=== PATIENT | female | born 1945 | race Caucasian/White ===

== ENCOUNTER → 2018-12-06 | Outpatient (CLI) | payer MEDICARE ==
--- NOTE | 2018-12-06 14:53 | REP ---
PA and lateral chest: There are no comparisons. The lung steele are clear. Cardiac size is upper normal. The aristides, mediastinum, skeletal structures are unremarkable. Patient age. Impression: Negative PA and lateral chest. Electronically Signed by Gaurav Stark MD 12/06/2018 02:45 P
== END ==
LOC: M ADAMS 14:30
PROVIDERS: ATTEND Family Medicine
DX: R05 Cough (principal); Z79.01 Long term (current) use of anticoagulants
CPT/HCPCS: 71046; 85610; G0463

== ENCOUNTER → 2018-12-06 | Outpatient (REF) | payer MEDICARE | LOC: M SFHCADAM 13:51 | PROVIDERS: ATTEND Family Medicine | DX: I48.2 Chronic atrial fibrillation (principal); I11.9 Hypertensive heart disease without heart failure; E03.9 Hypothyroidism, unspecified; E78.5 Hyperlipidemia, unspecified; R41.3 Other amnesia; Z53.8 Procedure and treatment not carried out for other reasons ==

== ENCOUNTER → 2018-12-08 | Outpatient (REF) | payer MEDICARE ==
[2018-12-08 13:17] LABS: HEMATOCRIT 41.3 % (36.0-47.0); HEMOGLOBIN 13.5 g/dl (12.0-15.5); MEAN CORPUSCULAR HEMOGLOBIN 32.7 pg (27.0-33.0); MEAN CORPUSCULAR HGB CONC 32.7 g/dl (32.0-36.5); PLATELET COUNT, AUTOMATED 185 10^3/uL (150-450); RED BLOOD COUNT 4.13 10^6/uL (4.00-5.40); WHITE BLOOD COUNT 5.3 10^3/uL (4.0-10.0)
[2018-12-08 13:26] LABS: ALBUMIN 3.4 GM/DL (3.2-5.2); ALT/SGPT 31 U/L (12-78); BILIRUBIN,TOTAL 0.5 MG/DL (0.2-1.0); BLOOD UREA NITROGEN 20 MG/DL (7-18); CALCIUM LEVEL 8.3 MG/DL (8.8-10.2); CARBON DIOXIDE LEVEL 31 MEQ/L (21-32); CHLORIDE LEVEL 106 MEQ/L (98-107); CHOLESTEROL LEVEL 242 MG/DL (<200); CHOLESTEROL RISK RATIO 2.659 (<5); CREATININE FOR GFR 0.64 MG/DL (0.55-1.30); FOLATE 8.1 NG/ML (>5.4); FREE T4 1.11 NG/DL (0.76-1.46); GLOMERULAR FILTRATION RATE > 60.0 (>39); GLUCOSE, FASTING 88 MG/DL (70-100); HDL CHOLESTEROL 91 MG/DL (>40); LDL CHOLESTEROL 130 MG/DL (<100); NON-HDL-C 151 MG/DL; POTASSIUM SERUM 3.9 MEQ/L (3.5-5.1); SODIUM LEVEL 142 MEQ/L (136-145); TOTAL PROTEIN 7.1 GM/DL (6.4-8.2); TRIGLYCERIDES LEVEL 104 MG/DL (<150); VITAMIN B12 LEVEL 1233 PG/ML (247-911)
== END ==
LOC: M SFHCADAM 08:55
PROVIDERS: ATTEND Family Medicine
DX: I48.2 Chronic atrial fibrillation (principal); I11.9 Hypertensive heart disease without heart failure; E03.9 Hypothyroidism, unspecified; E78.5 Hyperlipidemia, unspecified; R41.3 Other amnesia

== ENCOUNTER → 2019-08-17 | Outpatient (REF) | payer MEDICARE ==
[2019-08-17 17:26] LABS: HEMATOCRIT 41.6 % (36.0-47.0); HEMOGLOBIN 13.2 g/dl (12.0-15.5); MEAN CORPUSCULAR HEMOGLOBIN 31.8 pg (27.0-33.0); MEAN CORPUSCULAR HGB CONC 31.7 g/dl (32.0-36.5); MEAN CORPUSCULAR VOLUME 100.2 fl (80.0-96.0); PLATELET COUNT, AUTOMATED 198 10^3/uL (150-450); RED BLOOD COUNT 4.15 10^6/uL (4.00-5.40); WHITE BLOOD COUNT 5.2 10^3/uL (4.0-10.0)
[2019-08-17 17:41] LABS: ALBUMIN 3.6 GM/DL (3.2-5.2); ALT/SGPT 29 U/L (12-78); BILIRUBIN,TOTAL 0.6 MG/DL (0.2-1.0); BLOOD UREA NITROGEN 19 MG/DL (7-18); CALCIUM LEVEL 9.3 MG/DL (8.8-10.2); CARBON DIOXIDE LEVEL 36 MEQ/L (21-32); CHLORIDE LEVEL 105 MEQ/L (98-107); FREE T4 1.23 NG/DL (0.76-1.46); GLOMERULAR FILTRATION RATE > 60.0 (>39); GLUCOSE, FASTING 79 MG/DL (70-100); POTASSIUM SERUM 3.9 MEQ/L (3.5-5.1); SODIUM LEVEL 143 MEQ/L (136-145); TOTAL PROTEIN 6.9 GM/DL (6.4-8.2)
== END ==
LOC: M SFHCADAM 13:41
PROVIDERS: ATTEND Family Medicine
DX: I48.20 Chronic atrial fibrillation, unspecified (principal); I11.9 Hypertensive heart disease without heart failure; E03.9 Hypothyroidism, unspecified; Z79.01 Long term (current) use of anticoagulants
CPT/HCPCS: 80053; 84439; 84443; 85027; G0463

== ENCOUNTER → 2020-04-24 | Outpatient (REF) | payer MEDICARE | LOC: M SFHCADAM 09:55 | PROVIDERS: ATTEND Family Medicine | DX: I48.20 Chronic atrial fibrillation, unspecified (principal); R39.89 Other symptoms and signs involving the genitourinary system ==

== ENCOUNTER → 2020-04-25 | Outpatient (REF) | payer MEDICARE ==
[2020-04-25 13:20] LABS: APPEARANCE, URINE CLOUDY (CLEAR); BACTERIA, URINE AUTO 1+ (NEGATIVE); BILIRUBIN, URINE AUTO NEGATIVE (NEGATIVE); BLOOD, URINE BLOOD NEGATIVE (NEGATIVE); COLOR, URINE YELLOW (YELLOW); GLUCOSE, URINE (UA) AUTO NEGATIVE (NEGATIVE); KETONE, URINE AUTO NEGATIVE (NEGATIVE); LEUKOCYTE ESTERASE, URINE AUTO TRACE (NEGATIVE); MUCUS, URINE SMALL (NEGATIVE); NITRITE, URINE AUTO NEGATIVE (NEGATIVE); PROTEIN, URINE AUTO NEGATIVE (NEGATIVE); RBC, URINE AUTO 0 /HPF (0-3); SQUAMOUS EPITHELIAL CELL UR AU 0 /HPF (0-6); UROBILINOGEN, URINE AUTO 0.2 mg/dL (0.0-2.0); WBC, URINE AUTO 0 /HPF (0-3)
== END ==
LOC: M SFHCADAM 12:30
PROVIDERS: ATTEND Family Medicine
DX: R39.89 Other symptoms and signs involving the genitourinary system (principal)

== ENCOUNTER → 2020-06-26 | Outpatient (CLI) | payer MEDICARE ==
[2020-06-26 12:58] LABS: HEMATOCRIT 39.8 % (36.0-47.0); HEMOGLOBIN 12.9 g/dl (12.0-15.5); MEAN CORPUSCULAR HEMOGLOBIN 31.6 pg (27.0-33.0); MEAN CORPUSCULAR HGB CONC 32.4 g/dl (32.0-36.5); MEAN CORPUSCULAR VOLUME 97.5 fl (80.0-96.0); PLATELET COUNT, AUTOMATED 212 10^3/uL (150-450); RED BLOOD COUNT 4.08 10^6/uL (4.00-5.40); WHITE BLOOD COUNT 5.2 10^3/uL (4.0-10.0)
[2020-06-26 13:38] LABS: ALBUMIN 3.5 GM/DL (3.2-5.2); ALT/SGPT 27 U/L (12-78); BILIRUBIN,TOTAL 0.6 MG/DL (0.2-1.0); BLOOD UREA NITROGEN 17 MG/DL (7-18); CALCIUM LEVEL 8.7 MG/DL (8.8-10.2); CARBON DIOXIDE LEVEL 29 MEQ/L (21-32); CHLORIDE LEVEL 106 MEQ/L (98-107); CHOLESTEROL LEVEL 262 MG/DL (<200); CHOLESTEROL RISK RATIO 2.673 (<5); CREATININE FOR GFR 0.74 MG/DL (0.55-1.30); FREE T4 1.26 NG/DL (0.76-1.46); GLOMERULAR FILTRATION RATE > 60.0 (>39); GLUCOSE, FASTING 89 MG/DL (70-100); HDL CHOLESTEROL 98 MG/DL (>40); LDL CHOLESTEROL 149 MG/DL (<100); NON-HDL-C 164 MG/DL; POTASSIUM SERUM 3.8 MEQ/L (3.5-5.1); SODIUM LEVEL 141 MEQ/L (136-145); TRIGLYCERIDES LEVEL 74 MG/DL (<150)
== END ==
LOC: M WUC 09:30
PROVIDERS: ATTEND Family Medicine
DX: Z51.81 Encounter for therapeutic drug level monitoring (principal); Z79.01 Long term (current) use of anticoagulants; I48.20 Chronic atrial fibrillation, unspecified; I11.9 Hypertensive heart disease without heart failure; E03.9 Hypothyroidism, unspecified; E78.5 Hyperlipidemia, unspecified

== ENCOUNTER → 2020-07-08 | Outpatient (REF) | payer MEDICARE ==
[2020-07-08 16:42] LABS: INR 2.53; PROTHROMBIN TIME 27.8 SECONDS (12.5-14.3)
== END ==
LOC: M SFHCADAM 11:16
PROVIDERS: ATTEND Family Medicine
DX: I48.20 Chronic atrial fibrillation, unspecified (principal)

== ENCOUNTER → 2020-08-13 | Outpatient (CLI) | payer MEDICARE ==
[2020-08-13 16:55] LABS: THYROID STIMULATING HORMONE 1.09 uIU/ML (0.358-3.740)
[2020-08-13 16:56] LABS: FOLATE 21.4 NG/ML
[2020-08-20 14:12] LABS: VITAMIN B1 LEVEL WHOLE BLOOD 204.5 nmol/L (66.5-200.0); VITAMIN B6,PYRIDOXAL PHOSPHATE 97.4 ug/L (2.0-32.8); VITAMIN E(ALPHA TOCOPHEROL) 18.5 mg/L (9.0-29.0); VITAMIN E(GAMMA TOCOPHEROL) 0.6 mg/L (0.5-4.9)
== END ==
LOC: M WUC 13:13
PROVIDERS: ATTEND Psychiatry & Neurology Neurology
DX: E03.9 Hypothyroidism, unspecified (principal); E53.8 Deficiency of other specified B group vitamins

== ENCOUNTER → 2021-03-10 | Outpatient (REF) | payer MEDICARE ==
[2021-03-10 12:42] LABS: INR 2.4; PROTHROMBIN TIME 26.6 SECONDS (12.7-14.5)
== END ==
LOC: M SFHCADAM 10:35
PROVIDERS: ATTEND Family Medicine
DX: I48.20 Chronic atrial fibrillation, unspecified (principal); Z79.01 Long term (current) use of anticoagulants

== ENCOUNTER → 2021-04-21 | Outpatient (REF) | payer MEDICARE ==
[2021-04-21 13:15] LABS: INR 2.15; PROTHROMBIN TIME 24.4 SECONDS (12.7-14.5)
== END ==
LOC: M SFHCADAM 09:41
PROVIDERS: ATTEND Family Medicine
DX: Z79.01 Long term (current) use of anticoagulants (principal)

== ENCOUNTER → 2021-07-15 | Outpatient (REF) | payer MEDICARE ==
[2021-07-15 17:37] LABS: ALBUMIN 3.8 GM/DL (3.2-5.2); ALT/SGPT 35 U/L (12-78); BILIRUBIN,TOTAL 0.7 MG/DL (0.2-1.0); BLOOD UREA NITROGEN 15 MG/DL (7-18); CALCIUM LEVEL 9.7 MG/DL (8.8-10.2); CARBON DIOXIDE LEVEL 34 MEQ/L (21-32); CHLORIDE LEVEL 104 MEQ/L (98-107); CHOLESTEROL LEVEL 258 MG/DL (<200); CHOLESTEROL RISK RATIO 2.411 (<5); CREATININE FOR GFR 0.74 MG/DL (0.55-1.30); FREE T4 1.35 NG/DL (0.76-1.46); GLOMERULAR FILTRATION RATE > 60.0 (>39); GLUCOSE, FASTING 92 MG/DL (70-100); HDL CHOLESTEROL 107 MG/DL (>40); LDL CHOLESTEROL 139 MG/DL (<100); NON-HDL-C 151 MG/DL; SODIUM LEVEL 141 MEQ/L (136-145); TOTAL PROTEIN 7.3 GM/DL (6.4-8.2); TRIGLYCERIDES LEVEL 58 MG/DL (<150)
[2021-07-15 17:38] LABS: FOLATE 16.5 NG/ML (>5.4); VITAMIN B12 LEVEL 1819 PG/ML (247-911)
[2021-07-15 18:04] LABS: HEMOGLOBIN 13.7 g/dl (12.0-15.5); MEAN CORPUSCULAR HEMOGLOBIN 32.1 pg (27.0-33.0); MEAN CORPUSCULAR HGB CONC 32.6 g/dl (32.0-36.5); MEAN CORPUSCULAR VOLUME 98.4 fl (80.0-96.0); PLATELET COUNT, AUTOMATED 212 10^3/uL (150-450); RED BLOOD COUNT 4.27 10^6/uL (4.00-5.40); WHITE BLOOD COUNT 5.5 10^3/uL (4.0-10.0)
== END ==
LOC: M SFHCADAM 12:01
PROVIDERS: ATTEND Family Medicine
DX: Z79.01 Long term (current) use of anticoagulants (principal); I48.19 Other persistent atrial fibrillation; I11.9 Hypertensive heart disease without heart failure; E03.9 Hypothyroidism, unspecified; E78.5 Hyperlipidemia, unspecified; G25.0 Essential tremor; R41.3 Other amnesia
CPT/HCPCS: 80053; 80061; 82607; 82746; 84439; 84443; 85027; 85610; G0463

== ENCOUNTER → 2021-12-19 | Outpatient (REF) | payer MEDICARE | LOC: M SFHCADAM 12:41 | PROVIDERS: ATTEND Family Medicine | DX: R19.7 Diarrhea, unspecified (principal) ==

== ENCOUNTER → 2022-03-09 | Outpatient (REF) | payer MEDICARE ==
[2022-03-09 13:42] LABS: APPEARANCE, URINE MANUAL CLEAR (CLEAR); COLOR, URINE MANUAL YELLOW (YELLOW)
[2022-03-09 13:43] LABS: BILIRUBIN, URINE MANUAL NEGATIVE (NEGATIVE); BLOOD URINE MANUAL NEGATIVE (NEGATIVE); GLUCOSE, URINE (UA) MANUAL NEGATIVE (NEGATIVE); KETONE, URINE MANUAL NEGATIVE (NEGATIVE); LEUKOCYTE ESTERASE, URINE MAN POSITIVE (NEGATIVE); NITRITE, URINE MANUAL NEGATIVE (NEGATIVE); PROTEIN, URINE MANUAL NEGATIVE (NEGATIVE); SPECIFIC GRAVITY,URINE MANUAL 1.011 (1.002-1.035); UROBILINOGEN, URINE MANUAL NORMAL (NORMAL)
[2022-03-09 13:48] LABS: HEMATOCRIT 39.8 % (36.0-47.0); HEMOGLOBIN 12.9 g/dl (12.0-15.5); MEAN CORPUSCULAR HEMOGLOBIN 31.9 pg (27.0-33.0); MEAN CORPUSCULAR HGB CONC 32.4 g/dl (32.0-36.5); MEAN CORPUSCULAR VOLUME 98.5 fl (80.0-96.0); PLATELET COUNT, AUTOMATED 185 10^3/uL (150-450); RED BLOOD COUNT 4.04 10^6/uL (4.00-5.40); WHITE BLOOD COUNT 5.1 10^3/uL (4.0-10.0)
[2022-03-09 14:07] LABS: BACTERIA, URINE SMALL AMOUNT; RBC, URINE 0-1 /hpf (0-3)
[2022-03-09 14:08] LABS: AMORPHOUS SEDIMENT, URINE SMALL AMOUNT (NEGATIVE); HYALINE CAST, URINE NONE SEEN /lpf (0-1); MUCUS, URINE SMALL AMOUNT (NEGATIVE); SQUAMOUS EPITHELIAL CELL URINE SMALL AMOUNT /hpf (SMALL AMT)
[2022-03-09 17:24] LABS: ALBUMIN 3.6 GM/DL (3.2-5.2); ALT/SGPT 34 U/L (12-78); BILIRUBIN,TOTAL 0.6 MG/DL (0.2-1.0); BLOOD UREA NITROGEN 22 MG/DL (7-18); CALCIUM LEVEL 9.7 MG/DL (8.8-10.2); CARBON DIOXIDE LEVEL 31 MEQ/L (21-32); CHLORIDE LEVEL 105 MEQ/L (98-107); CHOLESTEROL LEVEL 235 MG/DL (<200); CHOLESTEROL RISK RATIO 2.175 (<5); CREATININE FOR GFR 0.72 MG/DL (0.55-1.30); FREE T4 1.11 NG/DL (0.76-1.46); GLOMERULAR FILTRATION RATE > 60.0 (>39); GLUCOSE, FASTING 86 MG/DL (70-100); HDL CHOLESTEROL 108 MG/DL (>40); LDL CHOLESTEROL 111 MG/DL (<100); NON-HDL-C 127 MG/DL; POTASSIUM SERUM 3.8 MEQ/L (3.5-5.1); SODIUM LEVEL 139 MEQ/L (136-145); TOTAL PROTEIN 6.9 GM/DL (6.4-8.2); TRIGLYCERIDES LEVEL 79 MG/DL (<150)
[2022-03-09 17:57] LABS: VITAMIN B12 LEVEL 764 PG/ML (247-911)
== END ==
LOC: M SFHCADAM 10:58
PROVIDERS: ATTEND Family Medicine
DX: F03.90 Unspecified dementia, unspecified severity, without behavioral disturbance, psychotic disturbance, mood disturbance, and anxiety (principal); Z79.01 Long term (current) use of anticoagulants; E03.9 Hypothyroidism, unspecified; E78.5 Hyperlipidemia, unspecified; I11.9 Hypertensive heart disease without heart failure; R35.0 Frequency of micturition

== ENCOUNTER → 2022-03-25 | Outpatient (REF) | payer MEDICARE ==
[2022-03-25 18:29] LABS: APPEARANCE, URINE MANUAL CLEAR (CLEAR); COLOR, URINE MANUAL YELLOW (YELLOW)
[2022-03-25 18:30] LABS: BILIRUBIN, URINE MANUAL NEGATIVE (NEGATIVE); BLOOD URINE MANUAL NEGATIVE (NEGATIVE); GLUCOSE, URINE (UA) MANUAL NEGATIVE (NEGATIVE); KETONE, URINE MANUAL NEGATIVE (NEGATIVE); LEUKOCYTE ESTERASE, URINE MAN POSITIVE (NEGATIVE); NITRITE, URINE MANUAL NEGATIVE (NEGATIVE); PROTEIN, URINE MANUAL NEGATIVE (NEGATIVE); UROBILINOGEN, URINE MANUAL NORMAL (NORMAL)
[2022-03-25 18:39] LABS: RBC, URINE 0-1 /hpf (0-3); SQUAMOUS EPITHELIAL CELL URINE MOD AMOUNT /hpf (SMALL AMT)
[2022-03-25 18:40] LABS: BACTERIA, URINE SMALL AMOUNT; HYALINE CAST, URINE NONE SEEN /lpf (0-1)
== END ==
LOC: M SFHCADAM 16:12
PROVIDERS: ATTEND Family Medicine
DX: N39.0 Urinary tract infection, site not specified (principal)

== ENCOUNTER 2022-05-30 14:57 | Inpatient (IN) | payer MEDICARE ==
[~2022-05-30] VITALS: Ht 165.1 cm; Wt 76.6 kg
[2022-05-30] MEDS ORDERED: BOOSTRIX/ADACEL VACCINE (DIPHTH/PERTUSS/ACELL/TETANUS) 0.5ML SYR IM.IMMUN ONE (15:10)
[2022-05-30 15:32] LABS: HEMATOCRIT 38.5 % (36.0-47.0); MEAN CORPUSCULAR HEMOGLOBIN 32.8 pg (27.0-33.0); MEAN CORPUSCULAR HGB CONC 33.8 g/dl (32.0-36.5); MEAN CORPUSCULAR VOLUME 97.2 fl (80.0-96.0); PLATELET COUNT, AUTOMATED 219 10^3/uL (150-450); RED BLOOD COUNT 3.96 10^6/uL (4.00-5.40); WHITE BLOOD COUNT 6.2 10^3/uL (4.0-10.0)
[2022-05-30 15:45] LABS: INR 3.01; PROTHROMBIN TIME 31.7 SECONDS (12.5-14.5)
[2022-05-30 16:20] LABS: ALBUMIN 3.5 GM/DL (3.2-5.2); ALT/SGPT 36 U/L (12-78); BILIRUBIN,TOTAL 0.5 MG/DL (0.2-1.0); BLOOD UREA NITROGEN 18 MG/DL (7-18); CALCIUM LEVEL 9.2 MG/DL (8.8-10.2); CARBON DIOXIDE LEVEL 34 MEQ/L (21-32); CHLORIDE LEVEL 104 MEQ/L (98-107); CREATININE FOR GFR 0.84 MG/DL (0.55-1.30); GLOMERULAR FILTRATION RATE > 60.0 (>39); GLUCOSE, FASTING 124 MG/DL (70-100); POTASSIUM SERUM 3.8 MEQ/L (3.5-5.1); SODIUM LEVEL 141 MEQ/L (136-145); TOTAL PROTEIN 6.9 GM/DL (6.4-8.2)
[2022-05-30] MEDS ORDERED: ACETAMINOPHEN 1000MG 100ML IV BAG IV ONE (16:25)
[2022-05-30] MEDS ORDERED: traMADol 50 MG TAB PO ONE (16:25)
[2022-05-30 16:37] LABS: RSV AMPLIFICATION NEGATIVE (NEGATIVE)
[2022-05-30] MEDS ORDERED: SYNT75TA PO (16:53)
[2022-05-30] MEDS ORDERED: CHLO125TA PO (16:53)
[2022-05-30] MEDS ORDERED: WARF-23 PO (16:53)
[2022-05-30] MEDS ORDERED: DONE10TA90 PO (16:53)
[2022-05-30] MEDS ORDERED: CARV12.5 PO (16:53)
[2022-05-30] MEDS ORDERED: HOME MED LIST COMPLETE! XX SCH (16:55)
[2022-05-30] MEDS ORDERED: MULT-90 PO (16:55)
[2022-05-30] MEDS ORDERED: MAGN400C PO (16:55)
[2022-05-30] MEDS ORDERED: COLA100C5 PO (16:55)
[2022-05-30 18:45] VITALS: BP 160/78
[2022-05-30 20:00] VITALS: BP 180/77
[2022-05-30] MEDS: CARVedilol 12.5 MG TAB PO SCH (20:24)
[2022-05-30] MEDS: hydrALAZINE 20MG/ML 1ML VIAL (J0360 PER 20MG) IV PRN (20:25)
[2022-05-30] MEDS: ACETAMINOPHEN TAB 650MG DOSE (2X325MG) PO PRN (20:25)
[2022-05-30] MEDS ORDERED: BACITRACIN OINTMENT 30GM TUBE TOP PRN (20:40)
[2022-05-31] VITALS (8 sets, daily range): BP systolic 140–184; BP diastolic 72–96
[2022-05-31] MEDS: LEVOTHYROXINE 75MCG TABLET (0.075MG) PO SCH (05:40)
[2022-05-31] MEDS: ACETAMINOPHEN TAB 650MG DOSE (2X325MG) PO PRN (05:40)
[2022-05-31 05:57] LABS: HEMATOCRIT 36.1 % (36.0-47.0); HEMOGLOBIN 12.1 g/dl (12.0-15.5); MEAN CORPUSCULAR HEMOGLOBIN 32.4 pg (27.0-33.0); MEAN CORPUSCULAR HGB CONC 33.5 g/dl (32.0-36.5); MEAN CORPUSCULAR VOLUME 96.5 fl (80.0-96.0); PLATELET COUNT, AUTOMATED 186 10^3/uL (150-450); RED BLOOD COUNT 3.74 10^6/uL (4.00-5.40); WHITE BLOOD COUNT 6.9 10^3/uL (4.0-10.0)
[2022-05-31 06:02] LABS: INR 2.9; PROTHROMBIN TIME 30.8 SECONDS (12.5-14.5)
[2022-05-31 06:03] LABS: PARTIAL THROMBOPLASTIN TIME 48.4 SECONDS (24.8-34.2)
[2022-05-31 06:32] LABS: ALBUMIN 3.2 GM/DL (3.2-5.2); ALT/SGPT 32 U/L (12-78); BILIRUBIN,TOTAL 0.8 MG/DL (0.2-1.0); BLOOD UREA NITROGEN 18 MG/DL (7-18); CALCIUM LEVEL 8.5 MG/DL (8.8-10.2); CARBON DIOXIDE LEVEL 27 MEQ/L (21-32); CHLORIDE LEVEL 106 MEQ/L (98-107); CREATININE FOR GFR 0.62 MG/DL (0.55-1.30); GLOMERULAR FILTRATION RATE > 60.0 (>39); GLUCOSE, FASTING 109 MG/DL (70-100); POTASSIUM SERUM 3.4 MEQ/L (3.5-5.1); SODIUM LEVEL 139 MEQ/L (136-145); TOTAL PROTEIN 6.4 GM/DL (6.4-8.2)
[2022-05-31] MEDS: CARVedilol 12.5 MG TAB PO SCH ×2 (07:45→22:14)
[2022-05-31] MEDS: MAGNESIUM OXIDE 400MG TAB (MAG-OX) PO SCH (07:50)
[2022-05-31] MEDS: MULTIVITAMINS/MINERALS THERAP 1 TAB PO SCH (07:50)
[2022-05-31] MEDS: DONEPEZIL 5 MG TAB PO SCH (07:51)
[2022-05-31] MEDS: CHLORTHALIDONE 12.5MG PER 1/2 TABLET PO SCH (07:51)
[2022-05-31] MEDS: DOCUSATE SODIUM 100MG CAPSULE PO SCH (07:53)
[2022-05-31] MEDS ORDERED: POTASSIUM CHLORIDE 10MEQ SR TABLET PO ONE (08:00)
[2022-06-01] VITALS (8 sets, daily range): BP systolic 102–176; BP diastolic 54–90
[2022-06-01] MEDS: LEVOTHYROXINE 75MCG TABLET (0.075MG) PO SCH (05:19)
[2022-06-01] MEDS: ACETAMINOPHEN TAB 650MG DOSE (2X325MG) PO PRN (05:20)
[2022-06-01] MEDS: hydrALAZINE 20MG/ML 1ML VIAL (J0360 PER 20MG) IV PRN (05:20)
[2022-06-01 06:09] LABS: HEMATOCRIT 37.3 % (36.0-47.0); HEMOGLOBIN 12.1 g/dl (12.0-15.5); MEAN CORPUSCULAR HEMOGLOBIN 31.6 pg (27.0-33.0); MEAN CORPUSCULAR HGB CONC 32.4 g/dl (32.0-36.5); MEAN CORPUSCULAR VOLUME 97.4 fl (80.0-96.0); PLATELET COUNT, AUTOMATED 197 10^3/uL (150-450); RED BLOOD COUNT 3.83 10^6/uL (4.00-5.40); WHITE BLOOD COUNT 7.7 10^3/uL (4.0-10.0)
[2022-06-01 06:19] LABS: INR 1.68; PROTHROMBIN TIME 20.1 SECONDS (12.5-14.5)
[2022-06-01 06:20] LABS: PARTIAL THROMBOPLASTIN TIME 41.6 SECONDS (24.8-34.2)
[2022-06-01 06:46] LABS: ALBUMIN 3.2 GM/DL (3.2-5.2); ALT/SGPT 34 U/L (12-78); BLOOD UREA NITROGEN 15 MG/DL (7-18); CALCIUM LEVEL 8.6 MG/DL (8.8-10.2); CARBON DIOXIDE LEVEL 25 MEQ/L (21-32); CHLORIDE LEVEL 104 MEQ/L (98-107); CREATININE FOR GFR 0.65 MG/DL (0.55-1.30); GLOMERULAR FILTRATION RATE > 60.0 (>39); GLUCOSE, FASTING 140 MG/DL (70-100); POTASSIUM SERUM 3.6 MEQ/L (3.5-5.1); SODIUM LEVEL 138 MEQ/L (136-145); TOTAL PROTEIN 6.9 GM/DL (6.4-8.2)
[2022-06-01] MEDS: MULTIVITAMINS/MINERALS THERAP 1 TAB PO SCH (08:20)
[2022-06-01] MEDS: CHLORTHALIDONE 12.5MG PER 1/2 TABLET PO SCH (08:20)
[2022-06-01] MEDS: DOCUSATE SODIUM 100MG CAPSULE PO SCH (08:21)
[2022-06-01] MEDS: DONEPEZIL 5 MG TAB PO SCH (08:21)
[2022-06-01] MEDS: MAGNESIUM OXIDE 400MG TAB (MAG-OX) PO SCH (08:21)
[2022-06-01] MEDS: CARVedilol 12.5 MG TAB PO SCH ×2 (08:21→21:00)
[2022-06-01] MEDS ORDERED: cloNIDine 0.1MG TABLET PO ONE (10:45)
[2022-06-02] VITALS (7 sets, daily range): BP systolic 119–160; BP diastolic 60–76
[2022-06-02] MEDS: LEVOTHYROXINE 75MCG TABLET (0.075MG) PO SCH (06:21)
[2022-06-02] MEDS: DOCUSATE SODIUM 100MG CAPSULE PO SCH (07:43)
[2022-06-02] MEDS: MAGNESIUM OXIDE 400MG TAB (MAG-OX) PO SCH (07:43)
[2022-06-02] MEDS: CHLORTHALIDONE 12.5MG PER 1/2 TABLET PO SCH (07:44)
[2022-06-02] MEDS: CARVedilol 12.5 MG TAB PO SCH (07:44)
[2022-06-02] MEDS: DONEPEZIL 5 MG TAB PO SCH (07:44)
[2022-06-02] MEDS: MULTIVITAMINS/MINERALS THERAP 1 TAB PO SCH (07:44)
[2022-06-02] MEDS ORDERED: WARFARIN SOD 5MG TAB PO ONE (19:15)
[2022-06-02] MEDS: MEMANTINE 5MG TABLET (NAMENDA) PO SCH (20:01)
[2022-06-02] MEDS: CARVedilol 6.25 MG TAB PO SCH (20:02)
[2022-06-03] MEDS: ACETAMINOPHEN TAB 650MG DOSE (2X325MG) PO PRN (00:14)
[2022-06-03 04:00] VITALS: BP 140/73
[2022-06-03] MEDS: LEVOTHYROXINE 75MCG TABLET (0.075MG) PO SCH (05:34)
[2022-06-03] MEDS ORDERED: MEMA1TAB3 PO (07:14)
[2022-06-03] MEDS ORDERED: CARV6.25 PO (07:14)
[2022-06-03 07:49] LABS: INR 1.13; PROTHROMBIN TIME 14.8 SECONDS (12.5-14.5)
[2022-06-03] MEDS: CHLORTHALIDONE 12.5MG PER 1/2 TABLET PO SCH (07:59)
[2022-06-03] MEDS: DOCUSATE SODIUM 100MG CAPSULE PO SCH (07:59)
[2022-06-03] MEDS: MULTIVITAMINS/MINERALS THERAP 1 TAB PO SCH (07:59)
[2022-06-03] MEDS: MEMANTINE 5MG TABLET (NAMENDA) PO SCH (07:59)
[2022-06-03 08:00] VITALS: BP 182/85
[2022-06-03] MEDS: CARVedilol 6.25 MG TAB PO SCH (08:00)
[2022-06-03] MEDS: MAGNESIUM OXIDE 400MG TAB (MAG-OX) PO SCH (08:00)
[2022-06-03] MEDS ORDERED: WARF-23 PO (12:32)
== END 2022-06-03 12:18 | disposition home health service (06) | DRG 83 ==
LOC: M ED 14:57 → EDBD 14:57 → M ED INP 16:23 → UNDOADMOB 16:23 → OBSVTOIN 17:35 → INTOOBSV 17:35 → ENRESERV 18:08 → M PCU 18:32 → M ED INP 18:32 → OBSVTOIN 06-01 16:23 → M ED INP 06-01 16:23 → M PCU 06-01 16:23
PROVIDERS: ADMIT Internal Medicine; ATTEND Internal Medicine
DX: S06.9X9A Unspecified intracranial injury with loss of consciousness of unspecified duration, initial encounter (principal); I48.20 Chronic atrial fibrillation, unspecified; S00.03XA Contusion of scalp, initial encounter; I10 Essential (primary) hypertension; E03.9 Hypothyroidism, unspecified; G30.9 Alzheimer's disease, unspecified; F02.80 Dementia in other diseases classified elsewhere, unspecified severity, without behavioral disturbance, psychotic disturbance, mood disturbance, and anxiety; M54.50 Low back pain, unspecified; G89.29 Other chronic pain; W01.0XXA Fall on same level from slipping, tripping and stumbling without subsequent striking against object, initial encounter; Y92.009 Unspecified place in unspecified non-institutional (private) residence as the place of occurrence of the external cause; Z90.49 Acquired absence of other specified parts of digestive tract; Z98.41 Cataract extraction status, right eye; Z98.42 Cataract extraction status, left eye; I16.0 Hypertensive urgency; R26.89 Other abnormalities of gait and mobility; E83.42 Hypomagnesemia; Z79.01 Long term (current) use of anticoagulants; Z79.890 Hormone replacement therapy; Z79.899 Other long term (current) drug therapy; Z20.822 Contact with and (suspected) exposure to COVID-19; R00.1 Bradycardia, unspecified

== ENCOUNTER → 2022-06-23 | Outpatient (CLI) | payer MEDICARE ==
[~2022-06-23] MED LIST: CARV12.5 PO; CARV6.25 PO; CHLO125TA PO; COLA100C5 PO; DONE10TA90 PO; MAGN400C PO; MEMA1TAB3 PO; MULT-90 PO; SYNT75TA PO; WARF-23 PO
== END ==
LOC: M ADAMS 13:53
PROVIDERS: ATTEND Physician Assistant
DX: S70.01XS Contusion of right hip, sequela (principal)

== ENCOUNTER → 2022-07-27 | Outpatient (REF) | payer MEDICARE ==
[2022-07-27 13:04] LABS: MEAN CORPUSCULAR HEMOGLOBIN 32.3 pg (27.0-33.0); MEAN CORPUSCULAR HGB CONC 32.6 g/dl (32.0-36.5); MEAN CORPUSCULAR VOLUME 99.3 fl (80.0-96.0); PLATELET COUNT, AUTOMATED 287 10^3/uL (150-450); RED BLOOD COUNT 4.33 10^6/uL (4.00-5.40); WHITE BLOOD COUNT 7.1 10^3/uL (4.0-10.0)
[2022-07-27 13:40] LABS: ALBUMIN 3.6 G/DL (3.2-5.2); ALKALINE PHOSPHATASE 135 U/L (46-116); ALT/SGPT 20 U/L (7.0-40); AST/SGOT 24 U/L (<34); BILIRUBIN,TOTAL 0.5 MG/DL (0.3-1.2); BLOOD UREA NITROGEN 19 MG/DL (9-23); CALCIUM LEVEL 9.5 MG/DL (8.3-10.6); CARBON DIOXIDE LEVEL 28 MMOL/L (20-31); CHLORIDE LEVEL 100 MMOL/L (98-107); CHOLESTEROL LEVEL 235 MG/DL (<200); CHOLESTEROL RISK RATIO 2.77 (<5); CREATININE FOR GFR 0.61 MG/DL (0.55-1.30); GLOMERULAR FILTRATION RATE > 60.0 (>39); GLUCOSE, FASTING 83 MG/DL (74-106); HDL CHOLESTEROL 84.6 MG/DL (>40); LDL CHOLESTEROL 127.4 MG/DL (<100); NON-HDL-C 150 MG/DL; POTASSIUM SERUM 4.1 MMOL/L (3.5-5.1); SODIUM LEVEL 140 MMOL/L (136-145); TOTAL PROTEIN 7.1 G/DL (5.7-8.2); TRIGLYCERIDES LEVEL 115 MG/DL (<150)
[2022-07-27 13:41] LABS: FREE T4 1.41 NG/DL (0.89-1.76); THYROID STIMULATING HORMONE 1.649 uIU/ML (0.55-4.78)
== END ==
LOC: M SFHCADAM 11:22
PROVIDERS: ATTEND Family Medicine
DX: I11.9 Hypertensive heart disease without heart failure (principal); F03.90 Unspecified dementia, unspecified severity, without behavioral disturbance, psychotic disturbance, mood disturbance, and anxiety; E03.9 Hypothyroidism, unspecified; E78.5 Hyperlipidemia, unspecified; Z79.01 Long term (current) use of anticoagulants

== ENCOUNTER → 2022-08-20 | Outpatient (CLI) | payer MEDICARE ==
[2022-08-20 13:24] LABS: INR 1.97; PROTHROMBIN TIME 22.8 SECONDS (12.5-14.5)
== END ==
LOC: M WUC 10:02
PROVIDERS: ATTEND Family Medicine
DX: Z51.81 Encounter for therapeutic drug level monitoring (principal); Z79.01 Long term (current) use of anticoagulants

== ENCOUNTER → 2022-09-15 | Outpatient (CLI) | payer MEDICARE ==
[2022-09-15 12:53] LABS: INR 2.24; PROTHROMBIN TIME 25.2 SECONDS (12.5-14.5)
== END ==
LOC: M WUC 10:23
PROVIDERS: ATTEND Family Medicine
DX: Z79.01 Long term (current) use of anticoagulants (principal)

== ENCOUNTER → 2022-09-29 | Outpatient (CLI) | payer MEDICARE | LOC: M ADAMS 14:57 | PROVIDERS: ATTEND Physician Assistant | DX: J20.9 Acute bronchitis, unspecified (principal) ==

== ENCOUNTER → 2022-11-01 | Outpatient (CLI) | payer MEDICARE ==
[2022-11-01 12:54] LABS: HEMATOCRIT 41.2 % (36.0-47.0); HEMOGLOBIN 13.2 g/dl (12.0-15.5); MEAN CORPUSCULAR HEMOGLOBIN 31.4 pg (27.0-33.0); MEAN CORPUSCULAR VOLUME 97.9 fl (80.0-96.0); PLATELET COUNT, AUTOMATED 223 10^3/uL (150-450); RED BLOOD COUNT 4.21 10^6/uL (4.00-5.40); WHITE BLOOD COUNT 6.3 10^3/uL (4.0-10.0)
[2022-11-01 13:16] LABS: ALBUMIN 3.4 G/DL (3.2-5.2); ALKALINE PHOSPHATASE 75 U/L (46-116); ALT/SGPT 20 U/L (7.0-40); AST/SGOT 22 U/L (<34); BILIRUBIN,TOTAL 0.7 MG/DL (0.3-1.2); BLOOD UREA NITROGEN 20 MG/DL (9-23); CALCIUM LEVEL 8.4 MG/DL (8.3-10.6); CARBON DIOXIDE LEVEL 31 MMOL/L (20-31); CHLORIDE LEVEL 103 MMOL/L (98-107); CREATININE FOR GFR 0.61 MG/DL (0.55-1.30); FREE T4 1.12 NG/DL (0.89-1.76); GLOMERULAR FILTRATION RATE > 60.0 (>39); GLUCOSE, FASTING 93 MG/DL (74-106); POTASSIUM SERUM 3.7 MMOL/L (3.5-5.1); SODIUM LEVEL 141 MMOL/L (136-145); THYROID STIMULATING HORMONE 1.496 uIU/ML (0.55-4.78); TOTAL PROTEIN 6.5 G/DL (5.7-8.2)
[2022-11-03 21:07] LABS: BORDETELLA PERTUSSIS ABY IgA 4.8 index (0.0-0.9); BORDETELLA PERTUSSIS ABY IgM <1.0 index (0.0-0.9)
== END ==
LOC: M WUC 09:13
PROVIDERS: ATTEND Family Medicine
DX: E03.9 Hypothyroidism, unspecified (principal); I11.9 Hypertensive heart disease without heart failure; J44.9 Chronic obstructive pulmonary disease, unspecified; R05.3 Chronic cough

== ENCOUNTER → 2022-11-08 | Outpatient (CLI) | payer MEDICARE | LOC: M PLAIMG 13:07 | PROVIDERS: ATTEND Family Medicine | DX: J45.909 Unspecified asthma, uncomplicated (principal); R05.9 Cough, unspecified ==

== ENCOUNTER → 2022-11-19 | Outpatient (REF) | payer MEDICARE | LOC: M SFHCADAM 10:19 | PROVIDERS: ATTEND Family Medicine | DX: Z79.01 Long term (current) use of anticoagulants (principal) ==

== ENCOUNTER → 2023-02-16 | Outpatient (REF) | payer MEDICARE ==
[2023-02-16 14:29] LABS: APPEARANCE, URINE CLOUDY (CLEAR); BACTERIA, URINE AUTO 2+ (NEGATIVE); BILIRUBIN, URINE AUTO NEGATIVE (NEGATIVE); BLOOD, URINE BLOOD NEGATIVE (NEGATIVE); COLOR, URINE YELLOW (YELLOW); GLUCOSE, URINE (UA) AUTO NEGATIVE (NEGATIVE); KETONE, URINE AUTO NEGATIVE (NEGATIVE); LEUKOCYTE ESTERASE, URINE AUTO 3+ (NEGATIVE); NITRITE, URINE AUTO POSITIVE (NEGATIVE); PROTEIN, URINE AUTO NEGATIVE (NEGATIVE); RBC, URINE AUTO 17 /HPF (0-3); SQUAMOUS EPITHELIAL CELL UR AU 1 /HPF (0-6); UROBILINOGEN, URINE AUTO 0.2 mg/dL (0.0-2.0); WBC, URINE AUTO TNTC /HPF (0-3)
== END ==
LOC: M SFHCADAM 08:00
PROVIDERS: ATTEND Physician Assistant
DX: R35.0 Frequency of micturition (principal)

== ENCOUNTER → 2023-03-30 | Outpatient (REF) | payer MEDICARE ==
[2023-03-30 17:03] LABS: AMORPHOUS SEDIMENT SMALL (NEGATIVE); APPEARANCE, URINE CLOUDY (CLEAR); BACTERIA, URINE AUTO NEGATIVE (NEGATIVE); BILIRUBIN, URINE AUTO NEGATIVE (NEGATIVE); BLOOD, URINE BLOOD NEGATIVE (NEGATIVE); COLOR, URINE YELLOW (YELLOW); GLUCOSE, URINE (UA) AUTO NEGATIVE (NEGATIVE); KETONE, URINE AUTO NEGATIVE (NEGATIVE); LEUKOCYTE ESTERASE, URINE AUTO 1+ (NEGATIVE); NITRITE, URINE AUTO NEGATIVE (NEGATIVE); PROTEIN, URINE AUTO NEGATIVE (NEGATIVE); RBC, URINE AUTO 0 /HPF (0-3); SPECIFIC GRAVITY URINE AUTO 1.019 (1.002-1.035); SQUAMOUS EPITHELIAL CELL UR AU 8 /HPF (0-6); UROBILINOGEN, URINE AUTO 0.2 mg/dL (0.0-2.0); WBC, URINE AUTO 1 /HPF (0-3)
[2023-03-30 17:13] LABS: HEMATOCRIT 42.9 % (36.0-47.0); HEMOGLOBIN 13.8 g/dl (12.0-15.5); MEAN CORPUSCULAR HEMOGLOBIN 32.1 pg (27.0-33.0); MEAN CORPUSCULAR HGB CONC 32.2 g/dl (32.0-36.5); MEAN CORPUSCULAR VOLUME 99.8 fl (80.0-96.0); PLATELET COUNT, AUTOMATED 208 10^3/uL (150-450); WHITE BLOOD COUNT 5.9 10^3/uL (4.0-10.0)
[2023-03-30 17:38] LABS: HEMOGLOBIN A1c 5.3 % (4.0-6.0)
[2023-03-30 17:41] LABS: ALBUMIN 3.6 G/DL (3.2-5.2); ALKALINE PHOSPHATASE 74 U/L (46-116); ALT/SGPT 22 U/L (7.0-40); AST/SGOT 19 U/L (<34); BILIRUBIN,TOTAL 0.6 MG/DL (0.3-1.2); BLOOD UREA NITROGEN 20 MG/DL (9-23); CALCIUM LEVEL 9.1 MG/DL (8.3-10.6); CARBON DIOXIDE LEVEL 31 MMOL/L (20-31); CHLORIDE LEVEL 103 MMOL/L (98-107); CREATININE FOR GFR 0.69 MG/DL (0.55-1.30); GLOMERULAR FILTRATION RATE > 60.0 (>39); GLUCOSE, FASTING 80 MG/DL (74-106); MAGNESIUM LEVEL 1.8 MG/DL (1.8-2.4); SODIUM LEVEL 140 MMOL/L (136-145); TOTAL PROTEIN 6.9 G/DL (5.7-8.2)
[2023-03-30 17:42] LABS: FREE T4 1.35 NG/DL (0.89-1.76); THYROID STIMULATING HORMONE 1.529 uIU/ML (0.55-4.78); VITAMIN B12 LEVEL 496 PG/ML (211-911)
[2023-03-30 17:43] LABS: TOTAL 25(OH) VITAMIN D 30.4 NG/ML (20.0-100.0)
[2023-03-30 17:48] LABS: FOLATE > 24.00 NG/ML (>5.4)
== END ==
LOC: M SFHCADAM 10:41
PROVIDERS: ATTEND Family Medicine
DX: F03.90 Unspecified dementia, unspecified severity, without behavioral disturbance, psychotic disturbance, mood disturbance, and anxiety (principal); I48.91 Unspecified atrial fibrillation; E03.9 Hypothyroidism, unspecified; R32 Unspecified urinary incontinence; Z79.01 Long term (current) use of anticoagulants; Z13.1 Encounter for screening for diabetes mellitus; Z79.899 Other long term (current) drug therapy

== ENCOUNTER 2023-08-09 20:25 | Emergency (ER) | payer MEDICARE ==
[~2023-08-09] VITALS: Ht 165.1 cm; Wt 83.9 kg
[~2023-08-09 20:25] MED LIST changes: +NIRMATRELVIR/RITONAVIR CO-PACK (EMERGENCY USE AUTH) PO SCH
[2023-08-09] MEDS ORDERED: NS 500 ML IV ONE (20:45)
[2023-08-09 20:56] LABS: VENOUS HCO3 27.3 MMOL/L (23.0-27.0); VENOUS PARTIAL PRESSURE CO2 40.7 mmHg (38.0-50.0); VENOUS PARTIAL PRESSURE O2 164.6 mmHg (30.0-50.0); VENOUS PH 7.445 UNITS (7.330-7.430); VENOUS STANDARD HCO3 27.2 MMOL/L; VENOUS TOTAL CO2 28.6 MMOL/L (24.0-28.0)
[2023-08-09 21:05] LABS: BASO % 0.3 % (0.0-1.0); EOS # 0.1 10^3/uL (0.0-0.5); EOS % 0.8 % (0.0-3.0); LYMPH # 0.8 10^3/uL (1.5-5.0); LYMPH % 10.9 % (24.0-44.0); MEAN CORPUSCULAR HEMOGLOBIN 32.4 pg (27.0-33.0); MEAN CORPUSCULAR HGB CONC 34.1 g/dl (32.0-36.5); MEAN CORPUSCULAR VOLUME 94.9 fl (80.0-96.0); MONO # 1.1 10^3/uL (0.0-0.8); MONO % 15.2 % (2.0-8.0); NEUTROPHILS # 5.3 10^3/uL (1.5-8.5); NEUTROPHILS % 72.5 % (36.0-66.0); PLATELET COUNT, AUTOMATED 163 10^3/uL (150-450); RED BLOOD COUNT 4.32 10^6/uL (4.00-5.40); WHITE BLOOD COUNT 7.3 10^3/uL (4.0-10.0)
[2023-08-09 21:25] LABS: INR 2.04; PROTHROMBIN TIME 22.3 SECONDS (12.5-14.5)
[2023-08-09 21:26] LABS: PARTIAL THROMBOPLASTIN TIME 40.2 SECONDS (24.8-34.2)
[2023-08-09 21:28] LABS: AMYLASE 37 U/L (30-118)
[2023-08-09 21:29] LABS: ALBUMIN 3.4 G/DL (3.2-5.2); ALKALINE PHOSPHATASE 75 U/L (46-116); ALT/SGPT 22 U/L (7.0-40); AST/SGOT 23 U/L (<34); BILIRUBIN,DIRECT 0.2 MG/DL (<0.4); BILIRUBIN,TOTAL 0.7 MG/DL (0.3-1.2); BLOOD UREA NITROGEN 16 MG/DL (9-23); CALCIUM LEVEL 8.2 MG/DL (8.3-10.6); CARBON DIOXIDE LEVEL 26 MMOL/L (20-31); CHLORIDE LEVEL 101 MMOL/L (98-107); CREATININE FOR GFR 0.61 MG/DL (0.55-1.30); GLOMERULAR FILTRATION RATE > 60.0 (>39); GLUCOSE, FASTING 130 MG/DL (74-106); POTASSIUM SERUM 3.7 MMOL/L (3.5-5.1); SODIUM LEVEL 133 MMOL/L (136-145); TOTAL PROTEIN 6.6 G/DL (5.7-8.2)
[2023-08-09 21:36] LABS: PROCALCITONIN 0.04 ng/ml
[2023-08-09] MEDS ORDERED: NIRM1TAB PO (23:11)
[2023-08-10] MEDS ORDERED: CARVedilol 6.25 MG TAB PO ONE
[2023-08-10] MEDS ORDERED: WARFARIN SOD 5MG TAB PO ONE
[2023-08-10] MEDS ORDERED: MEMANTINE 5MG TABLET (NAMENDA) PO STA
[2023-08-10 00:56] VITALS: BP 191/84
[2023-08-10 01:45] VITALS: BP 157/84; TEMP 98.8; O2SAT 97
[2023-08-10] MEDS ORDERED: NIRMATRELVIR/RITONAVIR CO-PACK (EMERGENCY USE AUTH) PO SCH (09:00)
== END 2023-08-10 01:45 | disposition home or self-care (01) ==
LOC: EDBD 20:25 → M ED 20:25
DX: U07.1 COVID-19 (principal); I50.9 Heart failure, unspecified; I10 Essential (primary) hypertension; E07.9 Disorder of thyroid, unspecified; F03.90 Unspecified dementia, unspecified severity, without behavioral disturbance, psychotic disturbance, mood disturbance, and anxiety; G25.0 Essential tremor; Z79.899 Other long term (current) drug therapy

== ENCOUNTER → 2023-08-15 | Outpatient (REF) | payer MEDICARE ==
[~2023-08-15] MED LIST changes: +NIRM1TAB PO; -NIRMATRELVIR/RITONAVIR CO-PACK (EMERGENCY USE AUTH) PO SCH
[2023-08-15 13:22] LABS: INR 2.69; PROTHROMBIN TIME 27.6 SECONDS (12.5-14.5)
== END ==
LOC: M SFHCADAM 11:22
PROVIDERS: ATTEND Family Medicine
DX: I48.91 Unspecified atrial fibrillation (principal)

== ENCOUNTER → 2023-09-08 | Outpatient (REF) | payer MEDICARE ==
[2023-09-08 19:04] LABS: HEMATOCRIT 43.1 % (36.0-47.0); HEMOGLOBIN 13.9 g/dl (12.0-15.5); MEAN CORPUSCULAR HEMOGLOBIN 31.8 pg (27.0-33.0); MEAN CORPUSCULAR HGB CONC 32.3 g/dl (32.0-36.5); MEAN CORPUSCULAR VOLUME 98.6 fl (80.0-96.0); PLATELET COUNT, AUTOMATED 224 10^3/uL (150-450); RED BLOOD COUNT 4.37 10^6/uL (4.00-5.40); WHITE BLOOD COUNT 6.4 10^3/uL (4.0-10.0)
[2023-09-08 19:20] LABS: HEMOGLOBIN A1c 5.4 % (4.0-6.0)
[2023-09-08 19:28] LABS: ALBUMIN 3.9 G/DL (3.2-5.2); ALKALINE PHOSPHATASE 77 U/L (46-116); ALT/SGPT 19 U/L (7.0-40); AST/SGOT 20 U/L (<34); BILIRUBIN,TOTAL 0.6 MG/DL (0.3-1.2); BLOOD UREA NITROGEN 19 MG/DL (9-23); CARBON DIOXIDE LEVEL 34 MMOL/L (20-31); CHLORIDE LEVEL 103 MMOL/L (98-107); CHOLESTEROL LEVEL 246 MG/DL (<200); CHOLESTEROL RISK RATIO 2.87 (<5); CREATININE FOR GFR 0.77 MG/DL (0.55-1.30); GLOMERULAR FILTRATION RATE > 60.0 (>39); GLUCOSE, FASTING 91 MG/DL (74-106); HDL CHOLESTEROL 85.7 MG/DL (>40); LDL CHOLESTEROL 137.3 MG/DL (<100); NON-HDL-C 160.3 MG/DL; SODIUM LEVEL 141 MMOL/L (136-145); TRIGLYCERIDES LEVEL 115 MG/DL (<150)
[2023-09-08 19:34] LABS: FREE T4 1.28 NG/DL (0.89-1.76); THYROID STIMULATING HORMONE 2.633 uIU/ML (0.55-4.78)
== END ==
LOC: M SFHCADAM 13:19
PROVIDERS: ATTEND Family Medicine
DX: Z79.01 Long term (current) use of anticoagulants (principal); R63.5 Abnormal weight gain; E03.9 Hypothyroidism, unspecified; E78.5 Hyperlipidemia, unspecified; Z79.899 Other long term (current) drug therapy

== ENCOUNTER → 2023-11-24 | Outpatient (CLI) | payer MEDICARE ==
[2023-11-24 12:00] LABS: INR 3.32; PROTHROMBIN TIME 32.4 SECONDS (12.5-14.5)
== END ==
LOC: M WUC 10:14
PROVIDERS: ATTEND Family Medicine
DX: Z79.01 Long term (current) use of anticoagulants (principal)

== ENCOUNTER → 2024-03-21 | Outpatient (REF) | payer MEDICARE ==
[2024-03-21 17:22] LABS: INR 3.15; PROTHROMBIN TIME 31.2 SECONDS (12.5-14.5)
== END ==
LOC: M SFHCADAM 11:48
PROVIDERS: ATTEND Physician Assistant
DX: Z79.01 Long term (current) use of anticoagulants (principal)

== ENCOUNTER → 2024-07-06 | Outpatient (REF) | payer MEDICARE ==
[2024-07-06 16:28] LABS: INR 2.77; PROTHROMBIN TIME 29.2 SECONDS (12.5-14.5)
== END ==
LOC: M WUC 16:05
PROVIDERS: ATTEND Physician Assistant
DX: I48.91 Unspecified atrial fibrillation (principal); Z79.01 Long term (current) use of anticoagulants

== ENCOUNTER → 2024-12-06 | Outpatient (REF) | payer MEDICARE ==
[2024-12-06 18:37] LABS: THYROID STIMULATING HORMONE 1.401 uIU/ML (0.55-4.78)
[2024-12-06 18:50] LABS: ALBUMIN 3.6 G/DL (3.2-5.2); ALKALINE PHOSPHATASE 82 U/L (35-104); ALT/SGPT 20 U/L (7.0-40); AST/SGOT 21 U/L (<34); BILIRUBIN,TOTAL 0.5 MG/DL (0.3-1.2); BLOOD UREA NITROGEN 23 MG/DL (9-23); CALCIUM LEVEL 8.9 MG/DL (8.3-10.6); CARBON DIOXIDE LEVEL 32 MMOL/L (20-31); CHLORIDE LEVEL 104 MMOL/L (98-107); CHOLESTEROL LEVEL 232 MG/DL (<200); CHOLESTEROL RISK RATIO 3.08 (<5); CREATININE FOR GFR 0.71 MG/DL (0.55-1.30); GLOMERULAR FILTRATION RATE 85.4 (>32); GLUCOSE, FASTING 87 MG/DL (74-106); HDL CHOLESTEROL 75.1 MG/DL (>40); LDL CHOLESTEROL 125.5 MG/DL (<100); NON-HDL-C 156.9 MG/DL; SODIUM LEVEL 143 MMOL/L (136-145); TOTAL PROTEIN 6.9 G/DL (5.7-8.2); TRIGLYCERIDES LEVEL 157 MG/DL (<150)
[2024-12-06 18:52] LABS: FREE T4 1.36 NG/DL (0.89-1.76); VITAMIN B12 LEVEL 672 PG/ML (211-911)
[2024-12-06 18:56] LABS: FOLATE > 24.00 NG/ML (>5.4)
[2024-12-06 19:02] LABS: HEMATOCRIT 41.9 % (36.0-47.0); HEMOGLOBIN 13.4 g/dl (12.0-15.5); PLATELET COUNT, AUTOMATED 242 10^3/uL (150-450); RED BLOOD COUNT 4.19 10^6/uL (4.00-5.40); WHITE BLOOD COUNT 6.8 10^3/uL (4.0-10.0)
== END ==
LOC: M SFHCADAM 14:41
PROVIDERS: ATTEND Family Medicine
DX: Z79.01 Long term (current) use of anticoagulants (principal); I48.91 Unspecified atrial fibrillation; E03.9 Hypothyroidism, unspecified; I11.9 Hypertensive heart disease without heart failure; E78.5 Hyperlipidemia, unspecified; F03.90 Unspecified dementia, unspecified severity, without behavioral disturbance, psychotic disturbance, mood disturbance, and anxiety

== ENCOUNTER 2025-02-04 16:23 | Inpatient (IN) | payer MEDICARE ==
[~2025-02-04] VITALS: Ht 162.6 cm; Wt 77.9 kg
[2025-02-04] MEDS ORDERED: ELIQ5TAB PO (17:08)
[2025-02-04] MEDS ORDERED: MEMA10TA PO (17:08)
[2025-02-04] MEDS ORDERED: LEXA1TAB PO (17:08)
[2025-02-04] MEDS: ACETAMINOPHEN 325 MG TAB PO ONE (17:28)
[2025-02-04] MEDS: LABETALOL 100 MG/20 ML VIAL IV STA (17:29)
[2025-02-04 17:31] LABS: BASO # 0.0 10^3/uL (0.0-0.2); BASO % 0.3 % (0.0-1.0); EOS # 0.1 10^3/uL (0.0-0.5); EOS % 1.3 % (0.0-3.0); LYMPH # 0.8 10^3/uL (1.5-5.0); LYMPH % 9.8 % (24.0-44.0); MONO # 0.7 10^3/uL (0.0-0.8); MONO % 7.7 % (2.0-8.0); NEUTROPHILS # 6.9 10^3/uL (1.5-8.5); NEUTROPHILS % 80.4 % (36.0-66.0); PLATELET COUNT, AUTOMATED 206 10^3/uL (150-450)
[2025-02-04 17:43] LABS: INR 0.99
[2025-02-04 17:54] LABS: CALCIUM LEVEL 8.8 MG/DL (8.3-10.6); CARBON DIOXIDE LEVEL 29.0 MMOL/L (20-31); CHLORIDE LEVEL 95.0 MMOL/L (98-107); CK-MB VALUE MASS 3.8 NG/ML (<3.6); CREATININE FOR GFR 0.69 MG/DL (0.55-1.30); GLOMERULAR FILTRATION RATE 87.1 (>32); POTASSIUM SERUM 4.4 MMOL/L (3.5-5.1); SODIUM LEVEL 135.0 MMOL/L (136-145)
[2025-02-04 17:58] LABS: FREE T4 1.34 NG/DL (0.89-1.76)
[2025-02-04 18:01] LABS: CPK CREATINE PHOSPHOKINASE 160.0 U/L (34-145); MB/CK RELATIVE INDEX 2.37 (< OR =4)
[2025-02-04] MEDS ORDERED: MAGN250C PO (21:35)
[2025-02-04] MEDS ORDERED: GARL500C6 PO (21:35)
[2025-02-04] MEDS ORDERED: HOME MED LIST COMPLETE! XX SCH (21:40)
[2025-02-05] MEDS: ACETAMINOPHEN *IV* 1,000 MG in IV 1 EA IV ONE (01:23)
[2025-02-05] MEDS: hydrALAZINE 20 MG/ML 1 ML VIAL IV ONE (01:24)
[2025-02-05] MEDS: KETOROLAC 30 MG/ML 1 ML VIAL IV ONE (01:26)
[2025-02-05 03:05] VITALS: BP 162/80; TEMP 97.7; O2SAT 95
[2025-02-05] MEDS ORDERED: hydrALAZINE 20 MG/ML 1 ML VIAL IV PRN (04:05)
[2025-02-05] MEDS: LEVOTHYROXINE 75 MCG TABLET (0.075 MG) PO SCH (05:43)
[2025-02-05] MEDS: ACETAMINOPHEN 325 MG TAB PO PRN (06:38)
[2025-02-05 08:00] VITALS: BP 160/95; TEMP 98.1; O2SAT 95
[2025-02-05 08:15] LABS: PLATELET COUNT, AUTOMATED 208 10^3/uL (150-450)
[2025-02-05] MEDS: DOCUSATE SODIUM 100 MG CAPSULE PO SCH (08:34)
[2025-02-05] MEDS: APIXABAN 5 MG TAB PO SCH (08:34)
[2025-02-05] MEDS: CHLORTHALIDONE 12.5 MG PER 1/2 TABLET PO SCH (08:35)
[2025-02-05] MEDS: MEMANTINE 5 MG TABLET PO SCH (08:35)
[2025-02-05 08:39] LABS: ALT/SGPT 23 U/L (7.0-40); AST/SGOT 32 U/L (<34); CALCIUM LEVEL 8.4 MG/DL (8.3-10.6); CARBON DIOXIDE LEVEL 26 MMOL/L (20-31); CHLORIDE LEVEL 94 MMOL/L (98-107); CREATININE FOR GFR 0.55 MG/DL (0.55-1.30); GLOMERULAR FILTRATION RATE > 90.0 (>32); MAGNESIUM LEVEL 1.6 MG/DL (1.8-2.4); POTASSIUM SERUM 3.6 MMOL/L (3.5-5.1); SODIUM LEVEL 132 MMOL/L (136-145)
[2025-02-05 12:00] VITALS: BP 158/78; TEMP 97.6; O2SAT 96
[2025-02-05] MEDS: MAG SULF 1GM/100ML (MAG RUN) 1 GM in IV 1 EA IV SCH (18:19)
[2025-02-05 19:57] VITALS: BP 162/96; TEMP 96.8; O2SAT 96
[2025-02-05] MEDS: ESCITALOPRAM OXALATE 10 MG TABLET PO SCH (20:47)
[2025-02-05] MEDS: RAMELTEON 8 MG TAB PO PRN (22:48)
[2025-02-06] VITALS (7 sets, daily range): BP systolic 92–172; BP diastolic 56–101; TEMP 97.3–97.9; O2SAT 95–96
[2025-02-06 00:22] LABS: KETONE, URINE AUTO RFX TRACE mg/dL (NEGATIVE); NITRITE, URINE AUTO RFX NEGATIVE (NEGATIVE); RBC, URINE AUTO RFX 2 /HPF (0-3); SQUAM EPITHELIAL CELL UR AURFX 0 /HPF (0-6); WBC, URINE AUTO RFX 10 /HPF (0-3)
[2025-02-06 00:42] LABS: LEUKOCYTE ESTERASE UR AUTO RFX 2+ (NEGATIVE)
[2025-02-06] MEDS: cefTRIAXone SOD 1 GM in DEXTROSE 5% (D5W) ADV/MINI-BAG 50 ML IV SCH (08:14)
[2025-02-06 08:17] LABS: CALCIUM LEVEL 8.2 MG/DL (8.3-10.6); CARBON DIOXIDE LEVEL 27 MMOL/L (20-31); CHLORIDE LEVEL 92 MMOL/L (98-107); CREATININE FOR GFR 0.57 MG/DL (0.55-1.30); GLOMERULAR FILTRATION RATE > 90.0 (>32); MAGNESIUM LEVEL 1.7 MG/DL (1.8-2.4); POTASSIUM SERUM 3.6 MMOL/L (3.5-5.1); SODIUM LEVEL 130 MMOL/L (136-145)
[2025-02-06] MEDS ORDERED: CEFDINIR 300 MG CAP PO SCH (09:00)
[2025-02-06] MEDS: MAGNESIUM OXIDE 400 MG TAB PO ONE (17:05)
[2025-02-06] MEDS: MAGNESIUM OXIDE 400 MG TAB PO SCH (20:39)
[2025-02-07 04:41] VITALS: BP 167/79; TEMP 97.9; O2SAT 95
[2025-02-07 08:00] VITALS: BP 173/84; TEMP 97.5
[2025-02-07 08:36] LABS: CALCIUM LEVEL 7.7 MG/DL (8.3-10.6); CARBON DIOXIDE LEVEL 31 MMOL/L (20-31); CHLORIDE LEVEL 92 MMOL/L (98-107); CREATININE FOR GFR 0.60 MG/DL (0.55-1.30); GLOMERULAR FILTRATION RATE > 90.0 (>32); MAGNESIUM LEVEL 1.8 MG/DL (1.8-2.4); POTASSIUM SERUM 3.4 MMOL/L (3.5-5.1); SODIUM LEVEL 130 MMOL/L (136-145)
[2025-02-07] MEDS: POTASSIUM CHLORIDE 10MEQ SR TABLET PO ONE (11:45)
[2025-02-07 12:00] VITALS: BP 133/73; TEMP 97.5; O2SAT 95
[2025-02-07 16:00] VITALS: BP 140/76; TEMP 97.9
[2025-02-07 20:03] VITALS: BP 126/72; TEMP 97.3; O2SAT 96
[2025-02-07 23:16] VITALS: BP 154/95; TEMP 97.2; O2SAT 95
[2025-02-08 05:57] VITALS: BP 154/94; TEMP 97.2; O2SAT 96
[2025-02-08 07:41] VITALS: TEMP 97.2; O2SAT 95
[2025-02-08] MEDS: POTASSIUM CHLORIDE 10MEQ SR TABLET PO ONE (09:03)
[2025-02-08] MEDS: KCL 10MEQ/100ML SWI (KRUN) 10 MEQ in IV 1 EA IV ONE (09:11)
[2025-02-08 12:29] VITALS: BP 147/81; TEMP 97; O2SAT 95
[2025-02-08] MEDS: MOM 30 ML SUSPENSION UDC PO PRN (12:47)
[2025-02-08 13:35] LABS: CALCIUM LEVEL 8.1 MG/DL (8.3-10.6); CARBON DIOXIDE LEVEL 28 MMOL/L (20-31); CHLORIDE LEVEL 91 MMOL/L (98-107); CREATININE FOR GFR 0.56 MG/DL (0.55-1.30); GLOMERULAR FILTRATION RATE > 90.0 (>32); POTASSIUM SERUM 4.7 MMOL/L (3.5-5.1); SODIUM LEVEL 126 MMOL/L (136-145)
[2025-02-08 17:00] VITALS: BP 198/107; TEMP 97.9; O2SAT 97
[2025-02-08] MEDS: **hydrALAZINE** 10 MG TAB PO ONE (18:13)
[2025-02-08 19:20] LABS: SODIUM,RANDOM URINE 159 MMOL/L
[2025-02-08 19:46] LABS: CALCIUM LEVEL 8.0 MG/DL (8.3-10.6); CARBON DIOXIDE LEVEL 28 MMOL/L (20-31); CHLORIDE LEVEL 93 MMOL/L (98-107); CREATININE FOR GFR 0.54 MG/DL (0.55-1.30); GLOMERULAR FILTRATION RATE > 90.0 (>32); POTASSIUM SERUM 4.3 MMOL/L (3.5-5.1); SODIUM LEVEL 129 MMOL/L (136-145)
[2025-02-08 20:07] VITALS: BP 158/98; TEMP 97.3; O2SAT 97
[2025-02-08] MEDS: **hydrALAZINE** 10 MG TAB PO SCH (21:24)
[2025-02-08] MEDS: TAMSULOSIN 0.4 MG CAP PO SCH (21:25)
[2025-02-09] VITALS (10 sets, daily range): BP systolic 152–205; BP diastolic 72–106; TEMP 97.1–97.9; O2SAT 94–100
[2025-02-09] MEDS: SODIUM CHLORIDE 1 GM TAB PO SCH (10:49)
[2025-02-09] MEDS: CEFDINIR 300 MG CAP PO SCH (10:57)
[2025-02-09] MEDS: **hydrALAZINE** 10 MG TAB PO SCH (10:59)
[2025-02-09 14:18] LABS: CALCIUM LEVEL 8.3 MG/DL (8.3-10.6); CARBON DIOXIDE LEVEL 26 MMOL/L (20-31); CHLORIDE LEVEL 89 MMOL/L (98-107); CREATININE FOR GFR 0.46 MG/DL (0.55-1.30); GLOMERULAR FILTRATION RATE > 90.0 (>32); POTASSIUM SERUM 4.4 MMOL/L (3.5-5.1); SODIUM LEVEL 123 MMOL/L (136-145)
[2025-02-09] MEDS: NS (Normal Saline) 0.9% 1,000 ML IV SCH (15:16)
[2025-02-09] MEDS ORDERED: DEXTROSE 50% 50 ML SYRINGE IV PRN (18:10)
[2025-02-09] MEDS ORDERED: GLUCOSE 4 GM CHEW PO PRN (18:10)
[2025-02-09] MEDS ORDERED: GLUCAGON INJ 1 MG VIAL SC PRN (18:10)
[2025-02-09] MEDS ORDERED: hydrALAZINE 20 MG/ML 1 ML VIAL IV PRN (18:50)
[2025-02-09 20:11] LABS: CALCIUM LEVEL 8.0 MG/DL (8.3-10.6); CARBON DIOXIDE LEVEL 24 MMOL/L (20-31); CHLORIDE LEVEL 89 MMOL/L (98-107); CREATININE FOR GFR 0.46 MG/DL (0.55-1.30); GLOMERULAR FILTRATION RATE > 90.0 (>32); POTASSIUM SERUM 4.0 MMOL/L (3.5-5.1); SODIUM LEVEL 124 MMOL/L (136-145)
[2025-02-09] MEDS: **hydrALAZINE** 50 MG TAB PO SCH (21:44)
[2025-02-09] MEDS: SIMETHICONE 80MG CHEW TAB PO SCH (21:45)
[2025-02-10] VITALS (26 sets, daily range): BP systolic 156–178; BP diastolic 70–88; TEMP 97–97.6; O2SAT 94–97
[2025-02-10 08:44] LABS: CALCIUM LEVEL 7.9 MG/DL (8.3-10.6); CARBON DIOXIDE LEVEL 24 MMOL/L (20-31); CHLORIDE LEVEL 89 MMOL/L (98-107); CREATININE FOR GFR 0.38 MG/DL (0.55-1.30); GLOMERULAR FILTRATION RATE > 90.0 (>32); MAGNESIUM LEVEL 1.6 MG/DL (1.8-2.4); POTASSIUM SERUM 3.5 MMOL/L (3.5-5.1); SODIUM LEVEL 122 MMOL/L (136-145)
[2025-02-10] MEDS: NS (Normal Saline) 0.9% 1,000 ML IV SCH (11:35)
[2025-02-10 18:42] LABS: CALCIUM LEVEL 8.2 MG/DL (8.3-10.6); CARBON DIOXIDE LEVEL 22 MMOL/L (20-31); CHLORIDE LEVEL 88 MMOL/L (98-107); CREATININE FOR GFR 0.42 MG/DL (0.55-1.30); GLOMERULAR FILTRATION RATE > 90.0 (>32); PHOSPHORUS LEVEL 2.1 MG/DL (2.4-5.1); POTASSIUM SERUM 3.7 MMOL/L (3.5-5.1); SODIUM LEVEL 121 MMOL/L (136-145)
[2025-02-11] VITALS (32 sets, daily range): BP systolic 129–173; BP diastolic 68–88; TEMP 97–97.9; O2SAT 93–97
[2025-02-11 10:06] LABS: SODIUM,RANDOM URINE 112 MMOL/L
[2025-02-11] MEDS: SODIUM CHLORIDE 3% 500 ML IV ONE (11:11)
[2025-02-11 11:41] LABS: CALCIUM LEVEL 8.0 MG/DL (8.3-10.6); CARBON DIOXIDE LEVEL 25 MMOL/L (20-31); CHLORIDE LEVEL 89 MMOL/L (98-107); CREATININE FOR GFR 0.46 MG/DL (0.55-1.30); GLOMERULAR FILTRATION RATE > 90.0 (>32); POTASSIUM SERUM 3.5 MMOL/L (3.5-5.1); SODIUM LEVEL 125 MMOL/L (136-145)
[2025-02-11 15:09] LABS: CALCIUM LEVEL 8.3 MG/DL (8.3-10.6); CARBON DIOXIDE LEVEL 24 MMOL/L (20-31); CHLORIDE LEVEL 91 MMOL/L (98-107); CREATININE FOR GFR 0.47 MG/DL (0.55-1.30); GLOMERULAR FILTRATION RATE > 90.0 (>32); POTASSIUM SERUM 3.9 MMOL/L (3.5-5.1); SODIUM LEVEL 126 MMOL/L (136-145)
[2025-02-11 20:17] LABS: CALCIUM LEVEL 7.8 MG/DL (8.3-10.6); CARBON DIOXIDE LEVEL 24 MMOL/L (20-31); CHLORIDE LEVEL 91 MMOL/L (98-107); CREATININE FOR GFR 0.47 MG/DL (0.55-1.30); GLOMERULAR FILTRATION RATE > 90.0 (>32); POTASSIUM SERUM 3.5 MMOL/L (3.5-5.1); SODIUM LEVEL 126 MMOL/L (136-145)
[2025-02-11 22:55] LABS: CALCIUM LEVEL 7.8 MG/DL (8.3-10.6); CARBON DIOXIDE LEVEL 24 MMOL/L (20-31); CHLORIDE LEVEL 92 MMOL/L (98-107); CREATININE FOR GFR 0.52 MG/DL (0.55-1.30); GLOMERULAR FILTRATION RATE > 90.0 (>32); POTASSIUM SERUM 3.6 MMOL/L (3.5-5.1); SODIUM LEVEL 128 MMOL/L (136-145)
[2025-02-12] VITALS (29 sets, daily range): BP systolic 119–168; BP diastolic 58–98; TEMP 97.1–98.5; O2SAT 93–98
[2025-02-12 02:56] LABS: CALCIUM LEVEL 7.9 MG/DL (8.3-10.6); CARBON DIOXIDE LEVEL 24 MMOL/L (20-31); CHLORIDE LEVEL 94 MMOL/L (98-107); CREATININE FOR GFR 0.47 MG/DL (0.55-1.30); GLOMERULAR FILTRATION RATE > 90.0 (>32); POTASSIUM SERUM 3.3 MMOL/L (3.5-5.1); SODIUM LEVEL 127 MMOL/L (136-145)
[2025-02-12 06:23] LABS: CALCIUM LEVEL 7.6 MG/DL (8.3-10.6); CARBON DIOXIDE LEVEL 24 MMOL/L (20-31); CHLORIDE LEVEL 95 MMOL/L (98-107); CREATININE FOR GFR 0.48 MG/DL (0.55-1.30); GLOMERULAR FILTRATION RATE > 90.0 (>32); MAGNESIUM LEVEL 1.7 MG/DL (1.8-2.4); POTASSIUM SERUM 3.2 MMOL/L (3.5-5.1); SODIUM LEVEL 130 MMOL/L (136-145)
[2025-02-12] MEDS ORDERED: KCL 20MEQ in NS 1000ML 1,000 ML IV SCH (08:25)
[2025-02-12] MEDS: POTASSIUM CHLORIDE 10MEQ SR TABLET PO SCH (09:02)
[2025-02-12] MEDS: MAGNESIUM OXIDE 400 MG TAB PO SCH (09:03)
[2025-02-12 10:34] LABS: SODIUM,RANDOM URINE 74 MMOL/L
[2025-02-12] MEDS: SODIUM CHLORIDE 3% 500 ML IV SCH (12:52)
[2025-02-12 20:35] LABS: CALCIUM LEVEL 8.1 MG/DL (8.3-10.6); CARBON DIOXIDE LEVEL 24 MMOL/L (20-31); CHLORIDE LEVEL 97 MMOL/L (98-107); CREATININE FOR GFR 0.47 MG/DL (0.55-1.30); GLOMERULAR FILTRATION RATE > 90.0 (>32); POTASSIUM SERUM 3.4 MMOL/L (3.5-5.1); SODIUM LEVEL 131 MMOL/L (136-145)
[2025-02-13] VITALS (27 sets, daily range): BP systolic 134–181; BP diastolic 76–97; TEMP 97.3–98; O2SAT 92–98
[2025-02-13] MEDS: LEVALBUTEROL 1.25 MG 0.5ML CONCENTRATE NEB NEB STA (03:12)
[2025-02-13 05:34] LABS: PLATELET COUNT, AUTOMATED 255 10^3/uL (150-450)
[2025-02-13 06:04] LABS: CALCIUM LEVEL 8.0 MG/DL (8.3-10.6); CARBON DIOXIDE LEVEL 25 MMOL/L (20-31); CHLORIDE LEVEL 99 MMOL/L (98-107); CREATININE FOR GFR 0.55 MG/DL (0.55-1.30); GLOMERULAR FILTRATION RATE > 90.0 (>32); MAGNESIUM LEVEL 1.7 MG/DL (1.8-2.4); PHOSPHORUS LEVEL 2.0 MG/DL (2.4-5.1); POTASSIUM SERUM 3.4 MMOL/L (3.5-5.1); SODIUM LEVEL 135 MMOL/L (136-145)
[2025-02-13 06:05] LABS: PTH INTACT 26.7 PG/ML (18.5-88.0)
[2025-02-13 06:06] LABS: TOTAL 25(OH) VITAMIN D 23.6 NG/ML (20.0-100.0)
[2025-02-13] MEDS: SODIUM CHLORIDE 1 GM TAB PO SCH (11:29)
[2025-02-13] MEDS: VITAMIN D 1,000 INTERNATIONAL UNITS TABLET PO SCH (11:30)
[2025-02-13] MEDS: FUROSEMIDE PO SCH (11:32)
[2025-02-13] MEDS: IPRATROPIUM 0.5 MG/ALBUTEROL 2.5 MG INH SOL UD 3 ML NEB SCH (15:24)
[2025-02-13] MEDS: POTASSIUM CHLORIDE 10MEQ SR TABLET PO ONE (17:15)
[2025-02-14] VITALS (26 sets, daily range): BP systolic 114–157; BP diastolic 58–81; TEMP 97.4–98.3; O2SAT 94–98
[2025-02-14] MEDS: LEVALBUTEROL 1.25 MG 0.5ML CONCENTRATE NEB INH PRN (00:17)
[2025-02-14] MEDS ORDERED: ONDANSETRON 4MG 2ML VIAL IV PRN (02:05)
[2025-02-14] MEDS: guaiFENesin DM LIQ 10ML UD PO PRN (02:23)
[2025-02-14 05:47] LABS: BASO # 0.0 10^3/uL (0.0-0.2); BASO % 0.4 % (0.0-1.0); EOS # 0.2 10^3/uL (0.0-0.5); EOS % 2.3 % (0.0-3.0); LYMPH # 0.7 10^3/uL (1.5-5.0); LYMPH % 10.3 % (24.0-44.0); MONO # 1.1 10^3/uL (0.0-0.8); MONO % 16.2 % (2.0-8.0); NEUTROPHILS # 4.9 10^3/uL (1.5-8.5); NEUTROPHILS % 70.5 % (36.0-66.0); PLATELET COUNT, AUTOMATED 246 10^3/uL (150-450)
[2025-02-14 06:03] LABS: CALCIUM LEVEL 8.2 MG/DL (8.3-10.6); CARBON DIOXIDE LEVEL 25 MMOL/L (20-31); CHLORIDE LEVEL 100 MMOL/L (98-107); CREATININE FOR GFR 0.55 MG/DL (0.55-1.30); GLOMERULAR FILTRATION RATE > 90.0 (>32); MAGNESIUM LEVEL 1.8 MG/DL (1.8-2.4); PHOSPHORUS LEVEL 2.1 MG/DL (2.4-5.1); POTASSIUM SERUM 3.7 MMOL/L (3.5-5.1); SODIUM LEVEL 136 MMOL/L (136-145)
[2025-02-14] MEDS: MAALOX 30 ML SUSP *UDC PO PRN (19:35)
[2025-02-15] VITALS (24 sets, daily range): BP systolic 100–164; BP diastolic 64–96; TEMP 96.7–98.3; O2SAT 92–98
[2025-02-15] MEDS: SODIUM CHLORIDE NASAL 0.65% SPRAY BTL (OCEAN) PRN (00:09)
[2025-02-15 05:32] LABS: BASO # 0.0 10^3/uL (0.0-0.2); BASO % 0.3 % (0.0-1.0); EOS # 0.3 10^3/uL (0.0-0.5); EOS % 4.2 % (0.0-3.0); LYMPH # 0.8 10^3/uL (1.5-5.0); LYMPH % 12.6 % (24.0-44.0); MONO # 0.9 10^3/uL (0.0-0.8); MONO % 13.8 % (2.0-8.0); NEUTROPHILS # 4.4 10^3/uL (1.5-8.5); NEUTROPHILS % 68.9 % (36.0-66.0); PLATELET COUNT, AUTOMATED 245 10^3/uL (150-450)
[2025-02-15 05:57] LABS: ALT/SGPT 34 U/L (7.0-40); AST/SGOT 27 U/L (<34); CALCIUM LEVEL 7.7 MG/DL (8.3-10.6); CARBON DIOXIDE LEVEL 26 MMOL/L (20-31); CHLORIDE LEVEL 99 MMOL/L (98-107); CREATININE FOR GFR 0.50 MG/DL (0.55-1.30); GLOMERULAR FILTRATION RATE > 90.0 (>32); MAGNESIUM LEVEL 1.6 MG/DL (1.8-2.4); PHOSPHORUS LEVEL 2.3 MG/DL (2.4-5.1); POTASSIUM SERUM 3.8 MMOL/L (3.5-5.1); SODIUM LEVEL 136 MMOL/L (136-145)
[2025-02-15] MEDS: MAGNESIUM OXIDE 400 MG TAB PO ONE (08:52)
[2025-02-15] MEDS: traZODone 50 MG TAB PO ONE (20:29)
[2025-02-16] VITALS (29 sets, daily range): BP systolic 120–158; BP diastolic 72–94; TEMP 96.5–98.3; O2SAT 92–96
[2025-02-16 06:29] LABS: BASO # 0.0 10^3/uL (0.0-0.2); BASO % 0.4 % (0.0-1.0); EOS # 0.2 10^3/uL (0.0-0.5); EOS % 4.2 % (0.0-3.0); LYMPH # 0.7 10^3/uL (1.5-5.0); LYMPH % 12.5 % (24.0-44.0); MONO # 0.6 10^3/uL (0.0-0.8); MONO % 11.3 % (2.0-8.0); NEUTROPHILS # 3.8 10^3/uL (1.5-8.5); NEUTROPHILS % 71.4 % (36.0-66.0); PLATELET COUNT, AUTOMATED 251 10^3/uL (150-450)
[2025-02-16 07:04] LABS: ALT/SGPT 28 U/L (7.0-40); AST/SGOT 27 U/L (<34); CALCIUM LEVEL 7.8 MG/DL (8.3-10.6); CARBON DIOXIDE LEVEL 28 MMOL/L (20-31); CHLORIDE LEVEL 97 MMOL/L (98-107); CREATININE FOR GFR 0.53 MG/DL (0.55-1.30); GLOMERULAR FILTRATION RATE > 90.0 (>32); MAGNESIUM LEVEL 1.7 MG/DL (1.8-2.4); PHOSPHORUS LEVEL 3.4 MG/DL (2.4-5.1); POTASSIUM SERUM 4.5 MMOL/L (3.5-5.1); SODIUM LEVEL 134 MMOL/L (136-145)
[2025-02-17 03:22] VITALS: BP 144/87; TEMP 96.8; O2SAT 93
[2025-02-17 06:43] LABS: BASO # 0.0 10^3/uL (0.0-0.2); BASO % 0.3 % (0.0-1.0); EOS # 0.2 10^3/uL (0.0-0.5); EOS % 3.5 % (0.0-3.0); LYMPH # 0.9 10^3/uL (1.5-5.0); LYMPH % 13.8 % (24.0-44.0); MONO # 0.8 10^3/uL (0.0-0.8); MONO % 13.0 % (2.0-8.0); NEUTROPHILS # 4.3 10^3/uL (1.5-8.5); NEUTROPHILS % 69.2 % (36.0-66.0); PLATELET COUNT, AUTOMATED 268 10^3/uL (150-450)
[2025-02-17 07:09] LABS: ALT/SGPT 25 U/L (7.0-40); AST/SGOT 22 U/L (<34); CALCIUM LEVEL 8.0 MG/DL (8.3-10.6); CARBON DIOXIDE LEVEL 26 MMOL/L (20-31); CHLORIDE LEVEL 100 MMOL/L (98-107); CREATININE FOR GFR 0.53 MG/DL (0.55-1.30); GLOMERULAR FILTRATION RATE > 90.0 (>32); MAGNESIUM LEVEL 1.6 MG/DL (1.8-2.4); PHOSPHORUS LEVEL 3.5 MG/DL (2.4-5.1); POTASSIUM SERUM 4.0 MMOL/L (3.5-5.1); SODIUM LEVEL 137 MMOL/L (136-145)
[2025-02-17 08:00] VITALS: BP 161/80; TEMP 98.6; O2SAT 94
[2025-02-17 12:00] VITALS: BP 152/77; TEMP 98.7; O2SAT 95
[2025-02-17 16:00] VITALS: BP 148/78; TEMP 98.6; O2SAT 34
[2025-02-17 20:21] VITALS: BP 145/79; TEMP 96.8; O2SAT 93
[2025-02-17 23:22] VITALS: BP 137/75; TEMP 97.3; O2SAT 95
[2025-02-18 03:20] VITALS: BP 136/76; TEMP 97.2; O2SAT 94
[2025-02-18 07:06] LABS: BASO # 0.0 10^3/uL (0.0-0.2); BASO % 0.3 % (0.0-1.0); EOS # 0.3 10^3/uL (0.0-0.5); EOS % 4.5 % (0.0-3.0); LYMPH # 1.0 10^3/uL (1.5-5.0); LYMPH % 15.3 % (24.0-44.0); MONO # 0.8 10^3/uL (0.0-0.8); MONO % 11.9 % (2.0-8.0); NEUTROPHILS # 4.3 10^3/uL (1.5-8.5); NEUTROPHILS % 67.7 % (36.0-66.0); PLATELET COUNT, AUTOMATED 250 10^3/uL (150-450)
[2025-02-18 07:42] LABS: ALT/SGPT 19 U/L (7.0-40); AST/SGOT 22 U/L (<34); CALCIUM LEVEL 7.8 MG/DL (8.3-10.6); CARBON DIOXIDE LEVEL 27 MMOL/L (20-31); CHLORIDE LEVEL 102 MMOL/L (98-107); CREATININE FOR GFR 0.58 MG/DL (0.55-1.30); GLOMERULAR FILTRATION RATE > 90.0 (>32); MAGNESIUM LEVEL 1.7 MG/DL (1.8-2.4); POTASSIUM SERUM 4.5 MMOL/L (3.5-5.1); SODIUM LEVEL 138 MMOL/L (136-145)
[2025-02-18 10:00] VITALS: BP 131/73
[2025-02-18 12:00] VITALS: BP 134/75; TEMP 97; O2SAT 96
[2025-02-18 19:59] VITALS: BP 142/89; TEMP 97; O2SAT 95
[2025-02-18 20:13] VITALS: BP 135/79; TEMP 97.3; O2SAT 97
[2025-02-19 04:11] VITALS: BP 138/72; TEMP 97.2; O2SAT 90
[2025-02-19 06:23] LABS: BASO # 0.0 10^3/uL (0.0-0.2); BASO % 0.4 % (0.0-1.0); EOS # 0.3 10^3/uL (0.0-0.5); EOS % 3.4 % (0.0-3.0); LYMPH # 0.9 10^3/uL (1.5-5.0); LYMPH % 11.7 % (24.0-44.0); MONO # 0.8 10^3/uL (0.0-0.8); MONO % 10.2 % (2.0-8.0); NEUTROPHILS # 5.8 10^3/uL (1.5-8.5); NEUTROPHILS % 73.8 % (36.0-66.0); PLATELET COUNT, AUTOMATED 281 10^3/uL (150-450)
[2025-02-19 06:36] LABS: ALT/SGPT 24 U/L (7.0-40); AST/SGOT 25 U/L (<34); CALCIUM LEVEL 8.1 MG/DL (8.3-10.6); CARBON DIOXIDE LEVEL 26 MMOL/L (20-31); CHLORIDE LEVEL 101 MMOL/L (98-107); CREATININE FOR GFR 0.56 MG/DL (0.55-1.30); GLOMERULAR FILTRATION RATE > 90.0 (>32); MAGNESIUM LEVEL 1.8 MG/DL (1.8-2.4); POTASSIUM SERUM 4.2 MMOL/L (3.5-5.1); SODIUM LEVEL 138 MMOL/L (136-145)
[2025-02-19 12:07] VITALS: TEMP 97; O2SAT 93
[2025-02-19 12:19] VITALS: BP 135/68
[2025-02-19 20:13] VITALS: BP 145/95; TEMP 97; O2SAT 93
[2025-02-20 03:58] VITALS: BP 142/84; TEMP 97.2; O2SAT 91
[2025-02-20 21:00] VITALS: O2SAT 81
[2025-02-20 21:02] VITALS: O2SAT 93
[2025-02-20 21:10] VITALS: O2SAT 95
[2025-02-20 21:45] VITALS: O2SAT 95
[2025-02-20 22:04] LABS: BASO # 0.0 10^3/uL (0.0-0.2); BASO % 0.3 % (0.0-1.0); EOS # 0.2 10^3/uL (0.0-0.5); EOS % 2.9 % (0.0-3.0); LYMPH # 1.2 10^3/uL (1.5-5.0); LYMPH % 17.5 % (24.0-44.0); MONO # 0.8 10^3/uL (0.0-0.8); MONO % 11.3 % (2.0-8.0); NEUTROPHILS # 4.6 10^3/uL (1.5-8.5); NEUTROPHILS % 67.7 % (36.0-66.0); PLATELET COUNT, AUTOMATED 272 10^3/uL (150-450)
[2025-02-20 22:47] LABS: ALT/SGPT 22.0 U/L (7.0-40); AST/SGOT 31.0 U/L (<34); CALCIUM LEVEL 8.5 MG/DL (8.3-10.6); CARBON DIOXIDE LEVEL 25.0 MMOL/L (20-31); CHLORIDE LEVEL 105.0 MMOL/L (98-107); CREATININE FOR GFR 0.66 MG/DL (0.55-1.30); GLOMERULAR FILTRATION RATE 88.1 (>32); MAGNESIUM LEVEL 1.8 MG/DL (1.8-2.4); POTASSIUM SERUM 4.6 MMOL/L (3.5-5.1); SODIUM LEVEL 142.0 MMOL/L (136-145)
[2025-02-21 03:36] VITALS: BP 147/69; TEMP 96.8; O2SAT 95
[2025-02-21 12:00] VITALS: BP 100/61; TEMP 96.8; O2SAT 95
[2025-02-21 19:58] VITALS: O2SAT 95
[2025-02-21 20:11] VITALS: BP 122/58; TEMP 97; O2SAT 95
[2025-02-21 20:59] VITALS: BP 136/80; O2SAT 96
[2025-02-22 04:03] VITALS: BP 136/81; TEMP 96.8; O2SAT 96
[2025-02-22 08:44] VITALS: BP 141/81
[2025-02-22 19:26] VITALS: O2SAT 94
[2025-02-23 03:35] VITALS: BP 121/80; TEMP 97.2; O2SAT 95
[2025-02-23] MEDS: RAMELTEON 8 MG TAB PO PRN (23:39)
[2025-02-24 03:28] VITALS: BP 136/74; TEMP 97.2; O2SAT 96
[2025-02-25 04:00] VITALS: BP 132/100; TEMP 96.4; O2SAT 95
[2025-02-25 09:18] VITALS: BP 126/61
[2025-02-25] MEDS ORDERED: FURO20TA2 PO (10:34)
[2025-02-25] MEDS ORDERED: TAMS-18 PO (10:34)
[2025-02-25] MEDS ORDERED: CARV12.5 PO (10:34)
[2025-02-25] MEDS ORDERED: SODI1TAB12 PO (10:34)
== END 2025-02-25 12:54 | DRG 644 ==
LOC: EDBD 16:23 → M ED 16:23 → M ED INP 02-05 01:00 → M MS5PR 02-05 03:05 → M PCU 02-09 19:55 → OBSVTOIN 02-10 07:31 → M MSPAV 02-16 21:05
PROVIDERS: ADMIT Student in an Organized Health Care Education/Training Program; ATTEND Internal Medicine
DX: E22.2 Syndrome of inappropriate secretion of antidiuretic hormone (principal); I48.20 Chronic atrial fibrillation, unspecified; I10 Essential (primary) hypertension; E03.9 Hypothyroidism, unspecified; G30.9 Alzheimer's disease, unspecified; F02.80 Dementia in other diseases classified elsewhere, unspecified severity, without behavioral disturbance, psychotic disturbance, mood disturbance, and anxiety; I16.0 Hypertensive urgency; E83.42 Hypomagnesemia; M54.50 Low back pain, unspecified; G89.29 Other chronic pain; R29.6 Repeated falls; F41.9 Anxiety disorder, unspecified; R33.9 Retention of urine, unspecified; J06.9 Acute upper respiratory infection, unspecified; B97.89 Other viral agents as the cause of diseases classified elsewhere; B97.10 Unspecified enterovirus as the cause of diseases classified elsewhere; M25.511 Pain in right shoulder; E87.6 Hypokalemia; R53.81 Other malaise; Z66 Do not resuscitate; R00.1 Bradycardia, unspecified; I95.9 Hypotension, unspecified; Z79.01 Long term (current) use of anticoagulants; Z79.890 Hormone replacement therapy; Z96.1 Presence of intraocular lens; Z79.899 Other long term (current) drug therapy; Z88.8 Allergy status to other drugs, medicaments and biological substances; Z90.49 Acquired absence of other specified parts of digestive tract

== ENCOUNTER → 2025-02-27 | Outpatient (REF) | payer MEDICARE ==
[~2025-02-27] MED LIST changes: +ELIQ5TAB PO; +FURO20TA2 PO; +GARL500C6 PO; +LEXA1TAB PO; +MAGN250C PO; +MEMA10TA PO; +SODI1TAB12 PO; +TAMS-18 PO
[2025-02-27 10:12] LABS: PLATELET COUNT, AUTOMATED 299 10^3/uL (150-450)
[2025-02-27 10:39] LABS: CALCIUM LEVEL 8.6 MG/DL (8.3-10.6); CARBON DIOXIDE LEVEL 30.0 MMOL/L (20-31); CHLORIDE LEVEL 103.0 MMOL/L (98-107); CREATININE FOR GFR 0.61 MG/DL (0.55-1.30); GLOMERULAR FILTRATION RATE 89.8 (>32); POTASSIUM SERUM 4.1 MMOL/L (3.5-5.1); SODIUM LEVEL 144.0 MMOL/L (136-145)
== END ==
PROVIDERS: ATTEND Physician Assistant
DX: I10 Essential (primary) hypertension (principal)

== ENCOUNTER → 2025-03-06 | Outpatient (REF) | payer MEDICARE ==
[2025-03-06 12:14] LABS: PLATELET COUNT, AUTOMATED 345 10^3/uL (150-450)
[2025-03-06 12:55] LABS: CALCIUM LEVEL 9.4 MG/DL (8.3-10.6); CARBON DIOXIDE LEVEL 30.0 MMOL/L (20-31); CHLORIDE LEVEL 104.0 MMOL/L (98-107); CREATININE FOR GFR 0.66 MG/DL (0.55-1.30); GLOMERULAR FILTRATION RATE 88.1 (>32); POTASSIUM SERUM 4.5 MMOL/L (3.5-5.1); SODIUM LEVEL 145.0 MMOL/L (136-145)
== END ==
PROVIDERS: ATTEND Physician Assistant
DX: I10 Essential (primary) hypertension (principal)

== ENCOUNTER → 2025-04-03 | Outpatient (REF) | payer MEDICARE ==
[2025-04-03 12:09] LABS: PLATELET COUNT, AUTOMATED 189 10^3/uL (150-450)
[2025-04-03 12:36] LABS: CALCIUM LEVEL 8.8 MG/DL (8.3-10.6); CARBON DIOXIDE LEVEL 30 MMOL/L (20-31); CHLORIDE LEVEL 106 MMOL/L (98-107); CREATININE FOR GFR 0.58 MG/DL (0.55-1.30); GLOMERULAR FILTRATION RATE > 90.0 (>32); POTASSIUM SERUM 4.3 MMOL/L (3.5-5.1); SODIUM LEVEL 146 MMOL/L (136-145)
== END ==
PROVIDERS: ATTEND Internal Medicine
DX: I10 Essential (primary) hypertension (principal)

== ENCOUNTER → 2025-04-29 | Outpatient (REF) | payer MEDICARE | PROVIDERS: ATTEND Internal Medicine | DX: I10 Essential (primary) hypertension (principal) ==

== ENCOUNTER → 2025-05-01 | Outpatient (REF) | payer MEDICARE ==
[2025-05-01 11:50] LABS: PLATELET COUNT, AUTOMATED 203 10^3/uL (150-450)
[2025-05-01 12:21] LABS: CALCIUM LEVEL 8.6 MG/DL (8.3-10.6); CARBON DIOXIDE LEVEL 31.0 MMOL/L (20-31); CHLORIDE LEVEL 105.0 MMOL/L (98-107); CREATININE FOR GFR 0.63 MG/DL (0.55-1.30); GLOMERULAR FILTRATION RATE 89.1 (>32); POTASSIUM SERUM 4.3 MMOL/L (3.5-5.1); SODIUM LEVEL 146.0 MMOL/L (136-145)
== END ==
PROVIDERS: ATTEND Physician Assistant
DX: N18.9 Chronic kidney disease, unspecified (principal)

== ENCOUNTER → 2025-05-29 | Outpatient (REF) | payer MEDICARE ==
[2025-05-29 12:43] LABS: PLATELET COUNT, AUTOMATED 208 10^3/uL (150-450)
[2025-05-29 13:07] LABS: CALCIUM LEVEL 8.4 MG/DL (8.3-10.6); CARBON DIOXIDE LEVEL 32.0 MMOL/L (20-31); CHLORIDE LEVEL 103.0 MMOL/L (98-107); CREATININE FOR GFR 0.69 MG/DL (0.55-1.30); GLOMERULAR FILTRATION RATE 87.1 (>32); POTASSIUM SERUM 4.2 MMOL/L (3.5-5.1); SODIUM LEVEL 142.0 MMOL/L (136-145)
== END ==
PROVIDERS: ATTEND Internal Medicine
DX: I10 Essential (primary) hypertension (principal)

== ENCOUNTER → 2025-05-31 | Outpatient (REF) | payer MEDICARE ==
[2025-05-31 17:10] LABS: PLATELET COUNT, AUTOMATED 224 10^3/uL (150-450)
[2025-05-31 18:03] LABS: CALCIUM LEVEL 8.5 MG/DL (8.3-10.6); CARBON DIOXIDE LEVEL 28.0 MMOL/L (20-31); CHLORIDE LEVEL 105.0 MMOL/L (98-107); CREATININE FOR GFR 0.63 MG/DL (0.55-1.30); GLOMERULAR FILTRATION RATE 89.1 (>32); POTASSIUM SERUM 4.5 MMOL/L (3.5-5.1); SODIUM LEVEL 143.0 MMOL/L (136-145)
== END ==
PROVIDERS: ATTEND Physician Assistant
DX: M25.571 Pain in right ankle and joints of right foot (principal)

== ENCOUNTER → 2025-05-31 | Outpatient (CLI) | payer MEDICARE | LOC: M RAD 14:03 | PROVIDERS: ATTEND Nurse Practitioner Family | DX: M25.571 Pain in right ankle and joints of right foot (principal); M79.661 Pain in right lower leg; M71.21 Synovial cyst of popliteal space [Baker], right knee; M79.89 Other specified soft tissue disorders; M85.871 Other specified disorders of bone density and structure, right ankle and foot ==

== ENCOUNTER → 2025-06-03 | Outpatient (REF) | payer MEDICARE | PROVIDERS: ATTEND Physician Assistant | DX: M25.571 Pain in right ankle and joints of right foot (principal); Z53.8 Procedure and treatment not carried out for other reasons ==

== ENCOUNTER → 2025-06-05 | Outpatient (REF) | payer MEDICARE ==
[2025-06-05 18:10] LABS: BASO # 0.0 10^3/uL (0.0-0.2); BASO % 0.3 % (0.0-1.0); EOS # 0.2 10^3/uL (0.0-0.5); EOS % 3.2 % (0.0-3.0); LYMPH # 1.8 10^3/uL (1.5-5.0); LYMPH % 29.2 % (24.0-44.0); MONO # 0.6 10^3/uL (0.0-0.8); MONO % 10.4 % (2.0-8.0); NEUTROPHILS # 3.4 10^3/uL (1.5-8.5); NEUTROPHILS % 56.7 % (36.0-66.0); PLATELET COUNT, AUTOMATED 222 10^3/uL (150-450)
[2025-06-05 18:35] LABS: ALT/SGPT 26.0 U/L (7.0-40); AST/SGOT 27.0 U/L (<34); CALCIUM LEVEL 8.6 MG/DL (8.3-10.6); CARBON DIOXIDE LEVEL 28.0 MMOL/L (20-31); CHLORIDE LEVEL 105.0 MMOL/L (98-107); CHOLESTEROL LEVEL 207.0 MG/DL (<200); CHOLESTEROL RISK RATIO 2.67 (<5); CREATININE FOR GFR 0.61 MG/DL (0.55-1.30); GLOMERULAR FILTRATION RATE 89.8 (>32); LDL CHOLESTEROL 110.1 MG/DL (<100); NON-HDL-C 129.5 MG/DL; POTASSIUM SERUM 4.4 MMOL/L (3.5-5.1); SODIUM LEVEL 142.0 MMOL/L (136-145); TRIGLYCERIDES LEVEL 97.0 MG/DL (<150)
== END ==
PROVIDERS: ATTEND Physician Assistant
DX: R07.9 Chest pain, unspecified (principal)

== ENCOUNTER → 2025-06-06 | Outpatient (REF) | payer MEDICARE | PROVIDERS: ATTEND Physician Assistant | DX: R07.9 Chest pain, unspecified (principal) ==

== ENCOUNTER → 2025-06-18 | Outpatient (CLI) | payer MEDICARE | LOC: M SOG 07:36 | PROVIDERS: ATTEND Orthopaedic Surgery | DX: M25.561 Pain in right knee (principal) ==

== ENCOUNTER → 2025-06-26 | Outpatient (REF) | payer MEDICARE ==
[2025-06-26 14:23] LABS: PLATELET COUNT, AUTOMATED 215 10^3/uL (150-450)
[2025-06-26 14:50] LABS: CALCIUM LEVEL 8.8 MG/DL (8.3-10.6); CARBON DIOXIDE LEVEL 29.0 MMOL/L (20-31); CHLORIDE LEVEL 104.0 MMOL/L (98-107); CREATININE FOR GFR 0.68 MG/DL (0.55-1.30); GLOMERULAR FILTRATION RATE 87.4 (>32); POTASSIUM SERUM 4.4 MMOL/L (3.5-5.1); SODIUM LEVEL 142.0 MMOL/L (136-145)
== END ==
PROVIDERS: ATTEND Internal Medicine
DX: I10 Essential (primary) hypertension (principal)

== ENCOUNTER → 2025-07-15 | Outpatient (REF) | payer MEDICARE ==
[~2025-07-15] MED LIST changes: +ACET1TAB55 PO; +BISA10SU27 PR; +FLEEENE12 PR; +MELA5TAB58 PO; +MEMA5TAB PO; +MILKSUS3 PO; +SENN1TAB85 PO; +SPIR-10 PO; +TAMS1CAP17 PO
== END ==
LOC: M PLAIMG 09:30
PROVIDERS: ATTEND Internal Medicine
DX: M25.561 Pain in right knee (principal)

== ENCOUNTER 2025-07-16 09:27 | Emergency (ER) | payer MEDICARE ==
[~2025-07-16] VITALS: Ht 165.1 cm; Wt 70.4 kg
[~2025-07-16 09:27] MED LIST changes: -ACET1TAB55 PO; -BISA10SU27 PR; -FLEEENE12 PR; -MELA5TAB58 PO; -MEMA5TAB PO; -MILKSUS3 PO; -SENN1TAB85 PO; -SPIR-10 PO; -TAMS1CAP17 PO
[2025-07-16] MEDS: ACETAMINOPHEN *IV* 1,000 MG in IV 1 EA IV ONE (16:13)
[2025-07-16 16:27] LABS: BASO # 0.0 10^3/uL (0.0-0.2); BASO % 0.3 % (0.0-1.0); EOS # 0.2 10^3/uL (0.0-0.5); EOS % 2.0 % (0.0-3.0); LYMPH # 1.4 10^3/uL (1.5-5.0); LYMPH % 16.0 % (24.0-44.0); MONO # 0.8 10^3/uL (0.0-0.8); MONO % 9.3 % (2.0-8.0); NEUTROPHILS # 6.4 10^3/uL (1.5-8.5); NEUTROPHILS % 72.1 % (36.0-66.0); PLATELET COUNT, AUTOMATED 213 10^3/uL (150-450)
[2025-07-16 17:01] LABS: ALT/SGPT 12.0 U/L (7.0-40); AST/SGOT 18.0 U/L (<34); C REACTIVE PROTEIN QUANTITATIV 2.81 MG/DL (<1.0); CALCIUM LEVEL 8.6 MG/DL (8.3-10.6); CARBON DIOXIDE LEVEL 28.0 MMOL/L (20-31); CHLORIDE LEVEL 105.0 MMOL/L (98-107); CREATININE FOR GFR 0.64 MG/DL (0.55-1.30); GLOMERULAR FILTRATION RATE 88.7 (>32); POTASSIUM SERUM 4.2 MMOL/L (3.5-5.1); SODIUM LEVEL 142.0 MMOL/L (136-145)
[2025-07-16] MEDS ORDERED: TAMS1CAP17 PO (17:17)
[2025-07-16] MEDS ORDERED: SODI1TAB12 PO (17:17)
[2025-07-16] MEDS ORDERED: ACET1TAB55 PO (17:17)
[2025-07-16] MEDS ORDERED: FLEEENE12 PR (17:17)
[2025-07-16] MEDS ORDERED: SPIR-10 PO (17:17)
[2025-07-16] MEDS ORDERED: MELA5TAB58 PO (17:17)
[2025-07-16] MEDS ORDERED: MILKSUS3 PO (17:17)
[2025-07-16] MEDS ORDERED: BISA10SU27 PR (17:17)
[2025-07-16] MEDS ORDERED: FURO20TA2 PO (17:17)
[2025-07-16] MEDS ORDERED: MEMA5TAB PO (17:17)
[2025-07-16] MEDS ORDERED: SENN1TAB85 PO (17:17)
[2025-07-16] MEDS ORDERED: HOME MED LIST COMPLETE! XX SCH (17:20)
[2025-07-16 18:20] VITALS: BP 148/79; TEMP 96.9; O2SAT 99
== END 2025-07-16 19:08 | disposition home or self-care (01) ==
LOC: M ED 09:27
DX: M25.461 Effusion, right knee (principal); I11.0 Hypertensive heart disease with heart failure; G47.30 Sleep apnea, unspecified; F03.90 Unspecified dementia, unspecified severity, without behavioral disturbance, psychotic disturbance, mood disturbance, and anxiety; E03.9 Hypothyroidism, unspecified; G25.0 Essential tremor; Z87.820 Personal history of traumatic brain injury; Z87.440 Personal history of urinary (tract) infections; Z79.01 Long term (current) use of anticoagulants; Z79.899 Other long term (current) drug therapy; Z88.8 Allergy status to other drugs, medicaments and biological substances
CPT/HCPCS: 73564; 80048; 80076; 84145; 84550; 85025; 85652; 86140; 87040; 96365; 99285; J0134

== ENCOUNTER → 2025-07-21 | Outpatient (CLI) | payer MEDICARE ==
[~2025-07-21] MED LIST changes: +ACET1TAB55 PO; +BISA10SU27 PR; +FLEEENE12 PR; +MELA5TAB58 PO; +MEMA5TAB PO; +MILKSUS3 PO; +SENN1TAB85 PO; +SPIR-10 PO; +TAMS1CAP17 PO
== END ==
PROVIDERS: ATTEND Internal Medicine
DX: R05.9 Cough, unspecified (principal)

== ENCOUNTER → 2025-07-22 | Outpatient (REF) | payer MEDICARE | PROVIDERS: ATTEND Physician Assistant | DX: R05.9 Cough, unspecified (principal); J98.4 Other disorders of lung ==